=== PATIENT | female | born 1995 | race Caucasian/White ===

== ENCOUNTER → 2020-06-28 14:28 | Outpatient (CLI) | payer BC, SELFPAY ==
--- NOTE | ~2020-06-28 | US_ITS ---
EXAMINATION: US OB transvaginal DATE: 06/28/2020 14:57 INDICATION: First trimester dating TECHNIQUE: Real-time pelvic transabdominal and transvaginal ultrasound was performed. COMPARISON: None. FINDINGS: The uterus measures 9.9 x 5.8 x 5.7 cm. There is an intrauterine gestational sac. There is a 1.7 x 0.3 x 0.7 cm hypoechoic area adjacent to the gestational sac. A yolk sac is identified. Feta l heart motion is identified measuring 185 beats per minute (bpm) by M-mode Doppler. The crown rump length measures 2.5 cm , which correlates with an estimated gestational age of 9 weeks and 2 day (s) (+/-) 6 day(s). The right ovary is not visualized however no right adnexal abnormality is seen. The left ovary measur es 2.0 x 1.5 x 2.4 cm. There is normal vascular flow in the left ovary. There is no free fluid in the pelvis. IMPRESSION: 1. Live intrauterine with an estimated gestational age of 9 weeks and 2 day(s) (+/-) 6 day( s) and an estimated delivery date of 01/29/2021. 2. Small subchorionic hematoma. Reviewed, dictated and finalized at location A. IMPRESSION: 1. Live intrauterine with an estimated gestational age of 9 weeks and 2 day(s) (+/-) 6 day(s) and an estimated delivery date of 01/29/2021. 2. Small subchorionic hematoma.
== END ==
PROVIDERS: Visit Provider Nurse Practitioner
DX: Z36.87 Encounter for antenatal screening for uncertain dates (principal); Z3A.09 9 weeks gestation of pregnancy; O36.8911 Maternal care for other specified fetal problems, first trimester, fetus 1
CPT/HCPCS: 76817

== ENCOUNTER → 2020-07-13 11:29 | Outpatient (CLI) | payer BC, SELFPAY ==
--- NOTE | ~2020-07-13 | US_ITS ---
EXAMINATION: US OB transvaginal DATE: 07/13/2020 11:50 INDICATION: Subchorionic hematoma follow-up. TECHNIQUE: Real-time transvaginal pelvic ultrasound was performed. COMPARISON: Ultrasound 06/28/2020 FINDINGS: The uterus measures 9.2 x 6.9 x 7.3 cm. There is an intrauterine gestational sac. The crown rum p length measures 4.6 cm, which correlates with an estimated gestational age of 11 weeks and 3 day(s) (+/-) 1 week(s) and 0 day(s). heart motion is identified measuring 167 beats per minute (bpm) by M-mode Doppler. The right ovary is not visualized. The left ovary is not visualized. There is no f ree fluid in the pelvis. IMPRESSION: 1. Single living intrauterine gestation with estimated date of delivery of 01/29/2021 based on the ult rasound from 06/28/2020. 2. No subchorionic hematoma. Reviewed, dictated and finalized at location A. IMPRESSION: 1. Single living intrauterine gestation with estimated date of delivery of 01/29 based on the ultrasound from 06/28/2020. 2. No subchorionic hematoma.
== END ==
PROVIDERS: Visit Provider Obstetrics & Gynecology Gynecology
DX: O36.8910 Maternal care for other specified fetal problems, first trimester, not applicable or unspecified (principal)
CPT/HCPCS: 76817

== ENCOUNTER → 2020-09-07 08:15 | Outpatient (CLI) | payer BC, SELFPAY ==
--- NOTE | ~2020-09-07 | US_ITS ---
EXAMINATION: US OB >= 14 weeks Fetus DATE: 09/07/2020 09:20 INDICATION: Second trimester anatomic survey TECHNIQUE: Real-time ultrasound of the pelvis was performed. COMPARISON: None. FINDINGS: There is a single living fetus in breech presentation. The placenta is posterior and 5.7 cm from the internal cervical os. heart rate is 153 beats per minute (bpm). cardiac activity and fet al movement are noted. The amniotic fluid index is subjectively normal. The following anatomy was identified as normal: 4 chamber heart 3 vessel cord cord insertion kidneys urinary bladder stomach spine diaphragm ventricles cisterna magna cerebellum The following biometric data were obtained: Biparietal diameter (BPD): 4.3 cm; head circumference (HC): 16.7 cm; abdominal circumference (AC): 14 .7 cm; femur length (FL): 2.8 cm. These measurements are concordant. Estimated weight is 292 g +/- 43 g, which correlates with the 46th percentile when 01/29/2021 is used as estimated date of delivery. As single measurements, these parameters are each equal to the following estimated gestational ages w ith ranges of +/- 2 standard deviations: BPD: 19 weeks 1 days ( 17 weeks 3 days - 20 weeks 6 days). HC: 19 weeks 3 days ( 17 weeks 6 days - 20 weeks 6 days). AC: 20 weeks 0 days ( 18 weeks 0 days - 22 weeks 1 days). FL: 18 weeks 6 days ( 17 weeks 0 days - 20 weeks 4 days). estimated gestational age based solely on measurements from this exam is 19 weeks 3 days +/- 1 weeks 2 days. IMPRESSION: 1. Single living fetus in breech presentation. 2. Estimated weight is 292 g +/- 43 g, which correlates with the 46th percentile when 01/29/2021 is used as estimated date of delivery. Reviewed, dictated and finalized at location A. LE IAM CONSULTANT IMPRESSION: 1. Single living fetus in breech presentation. 2. Estimated weight is 292 g +/- 43 g, which correlates with the 46th per centile when 01/29/2021 is used as estimated date of delivery.
== END ==
PROVIDERS: Visit Provider Nurse Practitioner
DX: Z34.92 Encounter for supervision of normal pregnancy, unspecified, second trimester (principal); Z3A.19 19 weeks gestation of pregnancy
CPT/HCPCS: 76805

== ENCOUNTER 2020-12-30 16:34 | Observation (INO) | payer BC, SELFPAY ==
[2020-12-30] VITALS (15 sets, daily range): BP systolic 141–171; BP diastolic 86–103; PULSE 94–126; RESP 18–20; TEMP 36.4–37.2; BMI 36.6
[2020-12-30 17:17] LABS: Basophils Percent Auto 0.2 % (0.2-1.2); Eosinophils Absolute Auto 0.1 K/mm3 (0-0.3); Hematocrit 33.5 % (37.0-47.0); Hemoglobin 11.4 g/dL (12.0-15.0); Immature Granulocyte Absolute 0.04 K/mm3 (0.00-0.031); Immature Granulocyte Percent A 0.5 % (0-0.5); Lymphocytes Absolute Auto 2.04 K/mm3 (0.9-3.2); Lymphocytes Percent Auto 23.6 % (18.3-44.2); Mean Corpuscular Hemoglobin 29.8 pg (26-34); Mean Corpuscular Volume 87.5 fl (80-100); Mean Platelet Volume 9.7 fl (7.4-10.4); Monocytes Absolute Auto 0.7 K/mm3 (0.1-0.6); Monocytes Percent Auto 7.9 % (2.6-8.5); Neutrophils Absolute Auto 5.8 K/mm3 (1.3-6.7); Neutrophils Percent Auto 66.8 % (45.5-73.1); Platelet Count Result 236 k/mm3 (150-375); Red Blood Count 3.83 M/mm3 (4.2-5.4); Red Cell Distribution Width 11.9 % (11.5-14.5); White Blood Count 8.7 K/mm3 (4.5-10.0)
[2020-12-30 17:32] LABS: Alanine Aminotransferase 11 U/L (4-35); Albumin Level 3.4 g/dL (3.5-5.1); Alkaline Phosphatase 174 U/L (38-126); Anion Gap 6 mmol/L (8-16); Aspartate Amino Transferase 19 U/L (14-36); Bilirubin,Total 0.2 mg/dL (0.2-1.3); Blood Urea Nitrogen 8 mg/dL (7-17); Calcium 8.7 mg/dL (8.4-10.2); Carbon Dioxide 22 mmol/L (22-30); Chloride 107 mmol/L (98-107); Estimated Glomerular Filt Rate > 60; Glucose 107 mg/dL (65-105); Potassium 3.9 mmol/L (3.4-5.0); Sodium 135 mmol/L (137-145); Uric Acid 4.7 mg/dL (2.5-7.5)
[2020-12-30 17:44] LABS: Creatinine Urine 156.8 mg/dL; Total Protein Urine Random 31 mg/dL
[2020-12-30 17:55] LABS: Add Urine Microscopic? YES; Appearance Urine Cloudy (Clear); Bacteria Urine 3+ /hpf; Bilirubin Urine Negative (Negative); Blood Urine Negative (Negative); Color Urine Yellow (Yellow); Glucose Urine UA Negative (Negative); Ketones Urine Trace mg/dL (Negative); Leukocyte Esterase Ur 3+ LEU/UL (NEGATIVE); Mucus Urine Few /lpf; Nitrate Urine Negative (Negative); Protein Urine 2+ mg/dL (Negative); Specific Grav Ur 1.024 (1.001-1.035); Squamous Epithelial Cell Urine Many /hpf (Few); Transitional Epi Cells Urine Rare /hpf (None Seen); Urobilinogen Urine Negative mg/dL (<2.0); WBC Urine 16-20 /hpf (0-3)
[2020-12-30] MEDS: NIFEdipine 30 MG TAB.ER.24 PO (18:26)
--- NOTE | 2020-12-30 18:30 | OBADM ---
This patient, Gris Romeo, admitted to the OB room OB Post 113 for observation. Patient/family oriented to hospital policies and general routines including ID bracelet, bed and alarms, visiting hours, pain management, procedures, bathroom and other care routines, personal items, smoking policy, room service/diet, and visiting hours. Patient/Family are encouraged to report perceived risks to care and to ask questions if they do not understand what they are told or what they should do.
[2020-12-30] MEDS: MULTIVIT/MIN/PREN/FOL AC/IRON TABLET 1 TAB PO (20:32)
[2020-12-30] MEDS: ASPIRIN 81 MG CHEWABLE TABLET PO (20:32)
[2020-12-31] VITALS (17 sets, daily range): BP systolic 117–162; BP diastolic 65–101; PULSE 80–112; RESP 18; TEMP 36.3–36.9
--- NOTE | 2020-12-31 07:43 | WPDOBADMIT ---
Obstetrics - Admit Note Admission Note: record reviewed. No pertinent additions to the history and/or any subsequent changes in the physical findings that are not consistent with the expected course of the were found. Additions to the history and/or subsequent changes in the physical findings follow. Here from office with elevated BP. No PIH Sx. Good FM. BP's on admit 150-170/90-103 since Procardia 140-150/80-90's (x 1 101) abdomen soft, nt labs ok 24 hour urine in progress [id number] 24 hour urine monitor BP if >100 again this am will change to Procardia XL 30 BID
--- NOTE | 2020-12-31 16:50 | PC.NURSE ---
called Dr. Barakat updated BP and reported completed 24 urine. discharge order received with procardia XL Rx. follow up in office on Wednesday for NST.
[2020-12-31 17:22] LABS: Collection Time Urine 24 HOURS
[2020-12-31 17:25] LABS: Patient Weight 233 Lbs; Total Volume 24 Hour Urine 1300 ml
[2020-12-31 17:40] LABS: Creatinine Clearance Urine 155.4 ml/min (75-125); Creatinine Urine 128.4 mg/dL; Total Protein Urine 24 Hr 299 MG/DAY (28-141); Total Protein Urine Random 23 mg/dL
== END 2020-12-31 17:25 | disposition home or self-care (01) ==
PROVIDERS: Admitting Provider Obstetrics & Gynecology Gynecology; PCP Family Medicine Sports Medicine; Visit Provider Obstetrics & Gynecology Gynecology
DX: O16.9 Unspecified maternal hypertension, unspecified trimester (principal); Z3A.00 Weeks of gestation of pregnancy not specified
CPT/HCPCS: 36415; 59025; 80053; 81001; 81050; 82570; 82575; 84156; 84550; 85025; 87086; 87088; 99199; A9270; G0378

== ENCOUNTER 2021-01-02 09:35 | Outpatient (CLI) | payer BC, SELFPAY ==
--- NOTE | ~2021-01-02 | US_ITS ---
EXAMINATION: 1. US OB limited 2. US umbilical doppler DATE: 01/02/2021 10:43 INDICATION: Preeclampsia. Third trimester. TECHNIQUE: Real-time ultrasound of the pelvis was performed. COMPARISON: Ultrasound 09/07/2020 FINDINGS: There is a single fetus in vertex presentation. The placenta is left fundal. heart rate is 122 beats per minute (bpm). The amniotic fluid index is 16.5 cm, which is normal. Umbilical artery pulsed Doppler demonstrates a peak systolic to end-diastolic velocity ratio (S/D rat io) of 1.8 (5th percentile = 1.98, 95th percentile = 3.29). IMPRESSION: 1. Single living fetus in vertex presentation. 2. Low umbilical artery S/D ratio. Reviewed, dictated and finalized at location A. ING ASSISTANT PROPERTY MANAGER IMPRESSION: 1. Single living fetus in vertex presentation. 2. Low umbilical artery S/D ratio.
== END 2021-01-02 09:36 | disposition home or self-care (01) ==
PROVIDERS: PCP Family Medicine Sports Medicine; Visit Provider Obstetrics & Gynecology Gynecology
DX: O14.03 Mild to moderate pre-eclampsia, third trimester (principal); Z3A.00 Weeks of gestation of pregnancy not specified
CPT/HCPCS: 76815; 76820

== ENCOUNTER 2021-01-09 04:52 | Inpatient (IN) | payer BC, SELFPAY ==
[2021-01-09] VITALS (248 sets, daily range): BP systolic 94–157; BP diastolic 45–110; PULSE 85–158; TEMP 36.8–37.8; O2SAT 80–100; BMI 36.2
--- NOTE | 2021-01-09 05:13 | WPDANESEPP ---
Anes - Eval Pre Procedure Procedure: labor epidural Date/Time: 01/09/21 05:13 Surgeon: eduardo Preop Diagnosis: pain during labor Pre Op Diagnosis: Induction of Labor Patient Data Age: 25 Gender: F Height: Weight: Allergies Allergy/AdvReac Type Severity Reaction Status Date / Time Penicillins Allergy Mild Verified 12/15/10 11:01 Sulfa (Sulfonamide Allergy Mild Verified 12/15/10 11:01 Antibiotics) Home Medications Medication Instructions Recorded Confirmed Type PNV cmb#95-ferrous fumarate-FA 1 tablet PO HS 12/30/20 12/30/20 History [] aspirin 81 mg PO HS 12/30/20 12/30/20 History nifedipine [Procardia XL] 30 mg PO QAM #30 tablet 12/31/20 Rx Patient hx anesthesia problems: none Family hx anesthesia problems: none PMFSH Past Medical History Medical History (Updated 01/09/21 @ 05:14 by Vickie Sosa CRNA) Anemia IUP (intrauterine ), incidental Family History Family History (Updated 12/30/20 @ 14:39 by Nilay Melton RN) Mother Hypertension Social History Social History Substance use: never Gender identity (if verbalized by the patient): Female Spiritual care concerns: No Exam Day of Procedure 01/09/21 05:13
--- NOTE | 2021-01-09 05:16 | LDADM ---
This patient, Gris Romeo, was admitted to Labor/Delivery/Recovery 102 on 01/09/21 at 04:52. Plans for labor, pain management and were discussed with patient. Patient/family oriented to hospital policies and general routines including ID bracelet, bed and alarms, visiting hours, pain management, procedures, bathroom and other care routines, personal items, smoking policy, room service/diet and guest tray routines, infant security routines, and visiting hours. Patient/Family are encouraged to report perceived risks to care and to ask questions if they do not understand what they are told or what they should do. See OBIX for further documentation.
[2021-01-09] MEDS: LACTATED RINGERS 1,000 ML 125 ML IV CONT ×5 (05:31→19:07)
[2021-01-09] MEDS: OXYTOCIN 30 UNITS/NS 500 ML 30 UNITS/500 ML BAG 6 UNITS IV CONT (05:32)
[2021-01-09 05:53] LABS: Alanine Aminotransferase 13 U/L (4-35); Albumin Level 3.6 g/dL (3.5-5.1); Alkaline Phosphatase 192 U/L (38-126); Anion Gap 7 mmol/L (8-16); Aspartate Amino Transferase 25 U/L (14-36); Basophils Percent Auto 0.2 % (0.2-1.2); Bilirubin,Total 0.2 mg/dL (0.2-1.3); Blood Urea Nitrogen 8 mg/dL (7-17); Calcium 9.2 mg/dL (8.4-10.2); Carbon Dioxide 21 mmol/L (22-30); Chloride 106 mmol/L (98-107); Eosinophils Absolute Auto 0.1 K/mm3 (0-0.3); Eosinophils Percent Auto 0.9 % (0-4.4); Estimated CRCL calculation 177 ml/min; Estimated Glomerular Filt Rate > 60; Glucose 108 mg/dL (65-105); Hematocrit 35.5 % (37.0-47.0); Hemoglobin 12.2 g/dL (12.0-15.0); Immature Granulocyte Absolute 0.04 K/mm3 (0.00-0.031); Immature Granulocyte Percent A 0.4 % (0-0.5); Lymphocytes Absolute Auto 2.16 K/mm3 (0.9-3.2); Lymphocytes Percent Auto 22.5 % (18.3-44.2); Mean Corpuscular HGB Conc 34.4 g/dl (32-36); Mean Corpuscular Hemoglobin 29.2 pg (26-34); Mean Corpuscular Volume 84.9 fl (80-100); Mean Platelet Volume 10.2 fl (7.4-10.4); Monocytes Absolute Auto 0.8 K/mm3 (0.1-0.6); Monocytes Percent Auto 8.5 % (2.6-8.5); Neutrophils Absolute Auto 6.5 K/mm3 (1.3-6.7); Neutrophils Percent Auto 67.5 % (45.5-73.1); Platelet Count Result 301 k/mm3 (150-375); Potassium 4.3 mmol/L (3.4-5.0); Red Blood Count 4.18 M/mm3 (4.2-5.4); Red Cell Distribution Width 11.9 % (11.5-14.5); Sodium 134 mmol/L (137-145); White Blood Count 9.6 K/mm3 (4.5-10.0)
[2021-01-09 06:09] LABS: Uric Acid 5.1 mg/dL (2.5-7.5)
[2021-01-09] MEDS: NIFEdipine 30 MG TAB.ER.24 PO (06:09)
--- NOTE | 2021-01-09 07:51 | WPDOBADMIT ---
Obstetrics - Admit Note Admission Note: record reviewed. No pertinent additions to the history and/or any subsequent changes in the physical findings that are not consistent with the expected course of the were found. Additions to the history and/or subsequent changes in the physical findings follow. Here for MIL for preeclampsia. FHTs reactive. Cervix 2-3/80/-2 AROM with clear fluid. Procardia xl 30 mg extra dose this am for elevated BP's. No PIH sx.
[2021-01-09 07:54] LABS: Rapid Plasma Reagin Non-Reactive (NonReactive)
[2021-01-10] VITALS (128 sets, daily range): BP systolic 107–153; BP diastolic 58–97; PULSE 85–145; RESP 14–24; TEMP 36.7–37.9; O2SAT 92–100
[2021-01-10] MEDS: GENTAMICIN SULFATE INJ 395 MG in DEXTROSE 5% 100 ML 109.88 MG IVPB (01:54)
[2021-01-10] MEDS: CLINDAMYCIN 900 MG/D5W 50 ML 900 MG/50 ML PIGGYBACK 50 MG IVPB (02:50)
--- NOTE | 2021-01-10 04:21 | WPDHPUPDATE1 ---
History and Physical Update Update Date/Time: 01/10/21 04:21 History and Physical has been reviewed, including an updated exam of the patient. There are NO changes in the patient's condition. Risks, benefits, and alternatives have been discussed and questions answered. Patient agrees to proceed with procedure.
--- NOTE | 2021-01-10 04:21 | PM.IMHP ---
H&P: HPI History of Present Illness Date/Time: 01/10/21 04:21 Chief Complaint: failure to descend Narrative: 25 yo G1 at 37 wks here for MIL for preeclampsia. Patient with good progress until a rim then slow to complete. Pushed for about 3 hours with good descent but not under the pubic bone. Rested for 30 min and pushed another hour with no further descent. Recommend to proceed with csection. Due to another csection in progress, waited until staff and room available since tracing reactive and patient stable. Questions answered. Review of Systems Review of Systems: Narrative: not repeated day of surgery; patient states no changes in status PMFSH Past Medical History Medical History (Updated 01/10/21 @ 04:28 by Shasha Barakat MD) Anemia Surgical History Surgical History (Updated 01/10/21 @ 04:28 by Shasha Barakat MD) H/O elbow surgery Family History Family History (Updated 12/30/20 @ 14:39 by Nilay Melton RN) Mother Hypertension Social History Social History Smoking status: Never smoker Substance use: never Gender identity (if verbalized by the patient): Female Spiritual care concerns: No Meds Home Medications and Allergies Home Medications Medication Instructions Recorded Confirmed Type PNV cmb#95-ferrous fumarate-FA 1 tablet PO HS 12/30/20 12/30/20 History [] aspirin 81 mg PO HS 12/30/20 12/30/20 History nifedipine [Procardia XL] 30 mg PO QAM #30 tablet 12/31/20 Rx Allergies Allergy/AdvReac Type Severity Reaction Status Date / Time Penicillins Allergy Mild Verified 12/15/10 11:01 Sulfa (Sulfonamide Allergy Mild Verified 12/15/10 11:01 Antibiotics) Vital Signs Vital Signs - 24 hr 01/09/21 05:10 01/09/21 05:15 01/09/21 05:27 Temperature 99.1 F Pulse Rate 134 H 128 H Respiratory Rate Blood Pressure 149/107 H 149/106 H Pulse Oximetry 01/09/21 05:30 01/09/21 05:45 01/09/21 06:01 Temperature Pulse Rate 126 H 120 H 115 H Respiratory Rate Blood Pressure 152/99 H 156/99 H 142/97 H Pulse Oximetry 01/09/21 06:16 01/09/21 06:30 01/09/21 07:01 Temperature Pulse Rate 107 H 105 H 103 H Respiratory Rate Blood Pressure 138/83 144/95 H 149/94 H Pulse Oximetry 01/09/21 07:31 01/09/21 08:00 01/09/21 08:21 Temperature 99.6 F Pulse Rate 104 H 103 H Respiratory Rate Blood Pressure 142/92 H 144/90 H Pulse Oximetry 01/09/21 08:30 01/09/21 09:09 01/09/21 09:31 Temperature Pulse Rate 100 104 H 109 H Respiratory Rate Blood Pressure 148/104 H 144/90 H 137/80 Pulse Oximetry 01/09/21 10:00 01/09/21 10:31 01/09/21 10:45 Temperature Pulse Rate 114 H 105 H 113 H Respiratory Rate Blood Pressure 142/94 H 145/93 H 151/96 H Pulse Oximetry 01/09/21 10:46 01/09/21 10:48 01/09/21 10:51 Temperature Pulse Rate 103 H 116 H 104 H Respiratory Rate Blood Pressure 147/80 H 148/110 H 152/79 H Pulse Oximetry 99 98 01/09/21 10:53 01/09/21 10:56 01/09/21 10:58 Temperature Pulse Rate 104 H 102 H 104 H Respiratory Rate Blood Pressure 150/86 H 154/92 H 147/76 H Pulse Oximetry 99 01/09/21 11:00 01/09/21 11:01 01/09/21 11:03 Temperature 98.6 F Pulse Rate 105 H 115 H Respiratory Rate Blood Pressure 148/76 H 140/81 Pulse Oximetry 99 01/09/21 11:05 01/09/21 11:06 01/09/21 11:08 Temperature Pulse Rate 102 H 107 H Respiratory Rate Blood Pressure 141/73 H 144/73 H Pulse Oximetry 99 01/09/21 11:11 01/09/21 11:13 01/09/21 11:16 Temperature Pulse Rate 105 H 105 H 108 H Respiratory Rate Blood Pressure 147/73 H 146/73 H 144/77 H Pulse Oximetry 98 98 01/09/21 11:18 01/09/21 11:21 01/09/21 11:23 Temperature Pulse Rate 104 H 102 H 104 H Respiratory Rate Blood Pressure 141/72 H 135/76 138/76 Pulse Oximetry 99 01/09/21 11:26 01/09/21 11:28 01/09/21 11:31 Temperature Pulse Rate 104 H 108 H 106 H Respi
--- NOTE | 2021-01-10 05:27 | P.OP_ITS ---
Procedure Note - Detailed Date of procedure: 01/10/21 Pre-op diagnosis: Induction of Labor IUP 37 wks preeclampsia failure to descend chorioamnionitis Post-op diagnosis: same Procedure performed: primary LTCS Description of procedure: The patient was taken to the operating room and placed in the dorsal supine position with a leftward tilt under epidural anesthesia. She was prepped and draped in the usual sterile fashion. Once anesthesia was deemed adequate, a Pfannenstiel skin incision was made with a scalpel and carried down to the underlying fascia. Fascial incision is extended laterally using Boyd scissors. Bleeding vessels in the subcutaneous tissue are cauterized for hemostasis. The Ochsner was used to tent the fascia which was then dissected off using sharp and blunt dissection. The rectus muscles are in the midline the peritoneum is entered using a Peon. The peritoneal incision is extended with blunt traction. The bladder blade is placed the vesicouterine peritoneum is grasped with a Peon and entered with Metzenbaum is a and extended laterally. Bladder flap was created digitally. The bladder blade is replaced. The lower uterine segment is incised with a scalpel in a transv erse fashion. Incision is extended laterally using blunt traction. At the level of the incision the neck is noted. The was brought up into the incision from deep in the pelvis. The infant was fully delivered with public relations assistant applying fundal pressure. The cord is clamped and cut and the infant handed to the waiting nursery nurse. The placenta is removed used manual traction. The uterus is cleared of all clots and debris and exteriorized. The uterine its incision extended bilaterally to the vagina. Allis clamps are used to grasp the incision in the angles and midline. 0 Monocryl is used to close the uterine incision in a running locked fashion. Same suture was used to imbricate. One additional rpbffa-[id number]-hepty suture was required in the right midline for hemostasis. The cul-de-sac is irrigated, the gutters are irrigated, and the uterus was returned to the abdomen. The incision was again inspected and noted to be hemostatic. The fascia was closed using 0 Vicryl in a running fashion. Subcutaneous tissues are irrigated and made hemostatic using Bovie cautery. The skin is closed using 4 0 Vicryl in a subcuticular fashion. Dermaflex was placed over the incision and the patient is taken to the recovery room in stable condition. Sponge, needle, and instrument counts are correct per the OR staff. Anesthesia: epidural Surgeon: Shasha Barakat MD Estimated blood loss (mL): 635 Drains: Yes (santoyo) Packing: No Pathology: yes (placenta) Complications: Other complications (bilateral extension to vagina) Condition: stable Disposition: PACU Findings: male infant with 7/9 scores weighing 7#6oz; nuchal cord tight x 2 and body cord x 1; normal appearing tubes, ovaries, and uterus with left tubal filmy adhesions to omentum
--- NOTE | 2021-01-10 05:34 | PM.OBDSVD ---
DS: Admitting Diagnosis Admitting Diagnosis Admitting Diagnosis: IUP 37 wks Preeclampsia DS: Discharge Diagnosis Discharge Diagnosis (1) Failure of descent in labor, delivered, current hospitalization: Code(s): O62.2 - Other uterine inertia Status: Acute (2) Preeclampsia: Code(s): O14.90 - Unspecified pre-eclampsia, unspecified trimester Status: Acute (3) 37 weeks gestation of : Code(s): Z3A.37 - 37 weeks gestation of Status: Acute OB - DS: Summary OB Procedures : NST, PIH Mgmt and Ultrasound OB Procedures Intrapartum: low cervical, transverse OB Procedures: : None Peripartum Data Infant Delivery Method: Section Procedures: Procedures Operation Date: 01/10/21 04:30 <No data on this case meets the specified criteria> complications: none Status at Discharge Functional status at discharge: independent ambulation Overall status at discharge: patient is progressing back to baseline Time Spent with Patient Time attestation: Total time spent providing and/or coordinating discharge services: DS: Data Data Completed and Pending Labs on day of discharge: Labs from last 24 hours 01/09/21 01/09/21 01/09/21 05:20 05:20 05:20 WBC RBC Hgb Hct MCV MCH MCHC RDW Plt Count MPV Immature Gran % (Auto) Neut % (Auto) Lymph % (Auto) Citrus % (Auto) Eos % (Auto) Baso % (Auto) Lymph # (Auto) Citrus # (Auto) Eos # (Auto) Baso # (Auto) Abs Immat Gran (auto) Absolute Neuts (auto) Absolute Nucleated RBC Nucleated RBC % Sodium 134 L Potassium 4.3 Chloride 106 Carbon Dioxide 21 L Anion Gap 7 L BUN 8 Creatinine 0.50 L Estim Creat Clear Calc 177 Estimated GFR > 60 Glucose 108 H Uric Acid Calcium 9.2 Total Bilirubin 0.2 AST 25 ALT 13 Alkaline Phosphatase 192 H Total Protein 7.0 Albumin 3.6 RPR Non-reactive Blood Type O Positive Antibody Screen Negative 01/09/21 01/09/21 05:20 05:20 WBC 9.6 RBC 4.18 L Hgb 12.2 Hct 35.5 L MCV 84.9 MCH 29.2 MCHC 34.4 RDW 11.9 Plt Count 301 MPV 10.2 Immature Gran % (Auto) 0.4 Neut % (Auto) 67.5 Lymph % (Auto) 22.5 Citrus % (Auto) 8.5 Eos % (Auto) 0.9 Baso % (Auto) 0.2 Lymph # (Auto) 2.16 Citrus # (Auto) 0.8 H Eos # (Auto) 0.1 Baso # (Auto) 0.0 Abs Immat Gran (auto) 0.04 H Absolute Neuts (auto) 6.5 Absolute Nucleated RBC 0.0 Nucleated RBC % 0.0 Sodium Potassium Chloride Carbon Dioxide Anion Gap BUN Creatinine Estim Creat Clear Calc Estimated GFR Glucose Uric Acid 5.1 Calcium Total Bilirubin AST ALT Alkaline Phosphatase Total Protein Albumin RPR Blood Type Antibody Screen Discharge Plan Discharge Attending physician on discharge: Shasha Barakat Discharging Clinician: Shasha Barakat Anticipated Discharge Date/Time: 01/13/21 05:35 Patient Disposition: Home, Self-Care Activity: may shower, may drive after 2 weeks and pelvic rest Diet: regular Patient Instructions: Antibiotic Form Stand Alone Forms: General Discharge Information Follow-up/Referrals: Shasha Barakat MD [Physician] - 1 Week (and 6 wk) Discharge Medications: New hydrocodone-acetaminophen 5-325 mg Tablet 1 tablet PO Q3H PRN (Reason: Moderate Pain (4-6)) Qty: 20 RF: 0 norethindrone (contraceptive) 0.35 mg tablet 0.35 mg PO DAILY Qty: 84 RF: 3 Continued PNV cmb#95-ferrous fumarate-FA [] 28 mg iron- 800 mcg Tablet 1 tablet PO HS RF: 0 Discontinued aspirin 81 mg Tablet 81 mg PO HS RF: 0 nifedipine [Procardia XL] 30 mg Tablet Extended Release 24hr 30 mg PO QAM Qty: 30 RF: 0 Date of admission: 01/09/21 04:52 Primary Care Provider: aCsh,Lauryn Lewis Admitting Provider: Yuval
[2021-01-10] MEDS: OXYTOCIN 30 UNITS/NS 500 ML 30 UNITS/500 ML BAG 125 UNITS IV CONT (07:00)
--- NOTE | 2021-01-10 08:00 | PC.NURSE ---
Patient transferred to post room #290 per stretcher from labor and delivery. Support person present. Oriented to unit, room, information board, rooming in, admission packet and security measures. Patient verbalizes understanding.
--- NOTE | 2021-01-10 11:05 | PC.NURSE ---
Mother called out for assist with feeding. Consulted with patient, reports has been sleepy and ineffective feeding for most feeds. Parents are concerned infant is sleepy and not nursing more than a few bursts of suckling Discussed and the 37 2/7 week infant, establishing may have its own unique set of circumstances due to their immaturity. Near term infants may be less alert, have less stamina and may have issues with latch, suck and swallow. With the possible inability to have a vigorous suck swallow, infants may not be adequately stimulating mother and/or able to have adequate milk transfer. Pumping should be considered for additional stimulation and to offer EBM as part of supplement if needed. Mother is attempting to left breast, left nipple is flat almost inverting Discussed and offered the nipple shield. Nipple shield provided to mother due to ineffective feeding. Instructions given on application and cleaning of shield. Discussed nipple shield precautions and possible complications. Patient able to return demonstration on proper application of shield. Discussed the need to initiate pumping if infant continues to nurse with the shield. Patient verbalizes understanding. Reviewed infant feeding cues, frequencies, duration of feedings, feeding elimination flow sheet, and signs of adequate intake. Demonstrated stimulation techniques to wake infant for feeding. Assisted with infant to breast. Reviewed positioning/alignment in cross cradle, holding breast in U hold and guided asymmetrical latch on. Infant was able to latch with shield, Infant made short eagerly burst of nursing occasional swallowing noted. Infant had long pausing needing to stimulate to wake. Reviewed signs of a correct latch, effective nursing and suck swallow ratio. Discussed infant is not effectively feeding this feeding. Infant was able to maintain latch. Suggested to stimulate infant while feeding to keep awake and nursing effectively for increased stimulation and increased intake. Instructed mother to call out for RN assistance if she is unable to latch infant for feeding or she has discomfort with nursing.
--- NOTE | 2021-01-10 11:15 | PC.NURSE ---
Feeding plan discussed of putting infant to breast each feeding for 5-10 minutes, FOB will supplement 15 mls of EBM/formula, while mother is pumping. Discussed if is effectively feeding supplementation can be decreased or discontinued, advised to have feeding observed before stopping supplement.
--- NOTE | 2021-01-10 11:30 | PC.NURSE ---
Breast pump provided due to ineffective feeding. Instructions given on breast pump care and usage, pumping schedule, nipple care, and collection and storage of breast milk. Encouraged [id number], breast massage and manual expression to stimulate supply. Assessed patient for correct flange size, placement and draw. Patient verbalizes and demonstrates understanding of instructions.
[2021-01-10] MEDS: DEXTROSE 5%/0.45% SOD CHL 1,000 ML 125 ML IV CONT (11:50)
--- NOTE | 2021-01-10 12:30 | PC.NURSE ---
Consult with pt., mother reports she just attempted to breast, FOB supplemented and she pumped without difficulties or discomfort. Mother reports infant made a few eager attempts to latch with short bursts of suckling.
[2021-01-10] MEDS: HYDROcodone/acetaminophen (*CRX) 5-325 MG TABLET 1 TAB PO (19:35)
[2021-01-10] MEDS: IBUPROFEN 600 MG TABLET PO (19:35)
[2021-01-11] MEDS: HYDROcodone/acetaminophen (*CRX) 5-325 MG TABLET 1 TAB PO ×3 (04:20→20:10)
[2021-01-11] MEDS: IBUPROFEN 600 MG TABLET PO ×3 (04:20→20:10)
[2021-01-11 05:48] LABS: Basophils Percent Auto 0.2 % (0.2-1.2); Eosinophils Absolute Auto 0.2 K/mm3 (0-0.3); Eosinophils Percent Auto 1.2 % (0-4.4); Hematocrit 27.6 % (37.0-47.0); Immature Granulocyte Absolute 0.08 K/mm3 (0.00-0.031); Immature Granulocyte Percent A 0.6 % (0-0.5); Lymphocytes Absolute Auto 2.21 K/mm3 (0.9-3.2); Lymphocytes Percent Auto 17.7 % (18.3-44.2); Mean Corpuscular HGB Conc 32.6 g/dl (32-36); Mean Corpuscular Hemoglobin 28.7 pg (26-34); Mean Corpuscular Volume 87.9 fl (80-100); Mean Platelet Volume 10.3 fl (7.4-10.4); Monocytes Percent Auto 7.6 % (2.6-8.5); Neutrophils Absolute Auto 9.1 K/mm3 (1.3-6.7); Neutrophils Percent Auto 72.7 % (45.5-73.1); Platelet Count Result 191 k/mm3 (150-375); Red Blood Count 3.14 M/mm3 (4.2-5.4); Red Cell Distribution Width 12.3 % (11.5-14.5); White Blood Count 12.5 K/mm3 (4.5-10.0)
[2021-01-11 09:00] VITALS: PULSE 105; RESP 16; O2SAT 98
--- NOTE | 2021-01-11 09:01 | WPDANLDPN2 ---
Anes-Prog Note L&D Date/Time: 01/11/21 09:01 Comfortable throughout: section Neuraxial method: spinal Epidural/Spinal procedure site: clean & non-tender Neuro status: Neuro function grossly intact. Cardiovascular status: normal Respiratory status: normal Airway patency: baseline Mental status: baseline Post-Op hydration status: normal Vital Signs: Last Vital Signs Temp 36.7 C 01/10/21 23:50 Pulse 105 H 01/10/21 23:50 Resp 16 01/10/21 23:50 BP 119/68 01/10/21 23:50 Pulse Ox 98 01/10/21 15:35 Pain score (VAS): 1 I/O: Intake & Output 01/10/21 01/11/21 01/11/21 23:59 07:59 15:59 Intake Total 1000 550 Output Total 600 Balance 1000 -50 Post-procedural complaints: pruritis mild, no treatment Patient feedback: Patient satisfied with anesthetic care.
--- NOTE | 2021-01-11 09:01 | WPDANLDNPN2 ---
Anes-Prog Note L&D-Neuraxial Date/Time: 01/11/21 09:01 Neuraxial medications: intrathecal PF morphine Opiod-related complaints: pruritis mild, no treatment Patient feedback: Patient satisfied with post-operative pain management.
[2021-01-11 12:00] VITALS: BP 136/77; PULSE 80; RESP 16; TEMP 36.6; O2SAT 97
[2021-01-11] MEDS: SIMETHICONE 80 MG TAB.CHEW PO (14:17)
[2021-01-11 17:30] VITALS: BP 142/88; PULSE 92; RESP 16; TEMP 36.7; O2SAT 99
[2021-01-11 19:30] VITALS: BP 126/85; PULSE 100; RESP 16; TEMP 36.7
[2021-01-11] MEDS: POLYSACCHARIDE IRON COMPLEX 150 MG CAPSULE PO (20:10)
[2021-01-11] MEDS: DOCUSATE SODIUM 100 MG CAPSULE PO (20:10)
[2021-01-12] MEDS: HYDROcodone/acetaminophen (*CRX) 5-325 MG TABLET 1 TAB PO ×3 (06:01→18:41)
[2021-01-12] MEDS: IBUPROFEN 600 MG TABLET PO ×3 (06:01→18:41)
[2021-01-12] MEDS: MULTIVIT/MIN/PREN/FOL AC/IRON TABLET 1 TAB PO (09:37)
[2021-01-12] MEDS: SIMETHICONE 80 MG TAB.CHEW PO ×3 (09:37→18:40)
[2021-01-12] MEDS: POLYSACCHARIDE IRON COMPLEX 150 MG CAPSULE PO ×2 (09:37→18:40)
[2021-01-12] MEDS: DOCUSATE SODIUM 100 MG CAPSULE PO ×2 (09:37→18:40)
[2021-01-12 11:10] VITALS: BP 139/80; PULSE 89; RESP 16; RESP 18; TEMP 36.9; O2SAT 97
--- NOTE | 2021-01-12 11:34 | PM.OBPNVD ---
OB - PN: Subj Subjective Date/time seen: 01/12/21 11:34 Doing okay patient sleeping soundly upon entering. OB - PN: Obj Data Labs CBC & Chem 7: 01/11/21 04:16 01/09/21 05:20 OB - PN A/P Assessment and Plan (1) Preeclampsia: Code(s): O14.90 - Unspecified pre-eclampsia, unspecified trimester Status: Acute (2) Failure of descent in labor, delivered, current hospitalization: Code(s): O62.2 - Other uterine inertia Status: Acute (3) S/P : Code(s): Z98.891 - History of uterine scar from previous surgery Status: Acute Assessment and Plan: continue with pp care. Time Spent With Patient Time: Total time spent is greater than 50% in coordination of care (as documented) at patient's floor/unit and/or counseling patient: Exam GI: Other: ff below umbilius
[2021-01-12 18:10] VITALS: BP 131/80; PULSE 90; RESP 18; TEMP 36.9; O2SAT 100
[2021-01-12] MEDS: LANOLIN (LANSINOH) 7.5 GM CREAM 1 APPLIC TOPICAL (20:19)
[2021-01-13] VITALS: BP 137/87; PULSE 91; RESP 18; TEMP 37.2; O2SAT 98
[2021-01-13 04:00] VITALS: BP 135/91; PULSE 94; RESP 20; TEMP 36.5; O2SAT 99
[2021-01-13] MEDS: IBUPROFEN 600 MG TABLET PO (04:17)
[2021-01-13] MEDS: SIMETHICONE 80 MG TAB.CHEW PO (04:17)
[2021-01-13] MEDS: HYDROcodone/acetaminophen (*CRX) 5-325 MG TABLET 1 TAB PO (04:18)
[2021-01-13] MEDS: POLYSACCHARIDE IRON COMPLEX 150 MG CAPSULE PO (08:08)
[2021-01-13] MEDS: DOCUSATE SODIUM 100 MG CAPSULE PO (08:08)
[2021-01-13] MEDS: MULTIVIT/MIN/PREN/FOL AC/IRON TABLET 1 TAB PO (08:08)
[2021-01-13 08:10] VITALS: BP 132/83; PULSE 95; RESP 16; TEMP 37.3; O2SAT 100
--- NOTE | 2021-01-13 09:06 | PM.OBPNVD ---
OB - PN: Subj Subjective Date/time seen: 01/13/21 09:06 Patient comments: no complaints and pain well controlled baby status: nursing well OB - PN: Obj Data Labs CBC & Chem 7: 01/11/21 04:16 01/09/21 05:20 OB - PN A/P Plan day: 3 Plan: routine care, discharge home and other (plans micronor) Time Spent With Patient Time: Total time spent is greater than 50% in coordination of care (as documented) at patient's floor/unit and/or counseling patient: Exam Narrative: Exam Narrative: inc c/d/i : Bimanual exam- vagina & uterus: other (Uterus firm, nt @U)
--- NOTE | 2021-01-13 09:45 | PC.NURSE ---
Consult with parents, mother reports she has pumped and bottle fed for the last day. Infant will make eager attempts to latch at times using the nipple shield. Mother is pump 30mls each session without difficulties or discomfort and has a double electric pump for home use. Mother is frustrated will eagerly bottle feed and fights when at breast. Discussed milk flow and once her milk is in infant may eagerly nurse with shield and milk flows more quickly. may be more awake to nurse and assist milk let down. Reviewed to massage and assist with let down before apply shield then latching. Reviewed if infant begins to latch, empty breast and gain weight mother can discontinue pumping Mother reports she will continue to attempt, and is content with pumping and bottle feeding. Mother is feeding as required and waking infant to feed if needed. is currently meeting outcomes for weight, output, jaundice and feeding frequencies. Mother states she feels confident to continue effective at home. Reviewed transition to breast milk, signs of adequate intake, and engorgement/relief. Instructed to call ICP if intake/output less than required. Reviewed regular medications mother is taking. Information provided per Yasmin. Reviewed community resources on the [facility] website and in the Mom/Baby guide. Information on outpatient services provided. Mother has no further questions at this time.
--- NOTE | 2021-01-13 11:15 | PC.NURSE ---
Patient viewed the discharge video Mother & Baby Care, The First Two Weeks . Patient was given the opportunity and encouraged to ask questions. Patient verbalized understanding of information shared and has been given the mother/baby guide for home reference.
[2021-01-14 09:37] VITALS: BP 133/86; PULSE 86; RESP 20; TEMP 36.6; O2SAT 100
== END 2021-01-13 12:00 | disposition home or self-care (01) | DRG 786 ==
LOC: ANHLDR 01-10 05:35 → ANHOB2 01-10 08:01
PROVIDERS: Admitting Provider Obstetrics & Gynecology Gynecology; PCP Family Medicine Sports Medicine; Visit Provider Obstetrics & Gynecology Gynecology
PROC: 10D00Z1 Extraction of Products of Conception, Low, Open Approach (ICD-10-PCS; CPT 59514; principal; 2021-01-10 04:30)
DX: O14.94 Unspecified pre-eclampsia, complicating childbirth (principal); O41.1230 Chorioamnionitis, third trimester, not applicable or unspecified; Z37.0 Single live birth; Z3A.37 37 weeks gestation of pregnancy; O62.2 Other uterine inertia; O99.02 Anemia complicating childbirth; D64.9 Anemia, unspecified; O69.1XX0 Labor and delivery complicated by cord around neck, with compression, not applicable or unspecified; O69.2XX0 Labor and delivery complicated by other cord entanglement, with compression, not applicable or unspecified
CPT/HCPCS: 36415; 80053; 84550; 85025; 86592; 86850; 86900; 86901; 88307; A9270; J0131; J1100; J1580; J1885; J2274; J2405; J2590; J2795; J7120

== ENCOUNTER → 2022-07-04 10:53 | Outpatient (CLI) | payer BC, SELFPAY ==
--- NOTE | ~2022-07-04 | US_ITS ---
EXAMINATION: US OB transvaginal DATE: 07/04/2022 12:16 INDICATION: First trimester dating TECHNIQUE: Real-time pelvic transabdominal and transvaginal ultrasound was performed. COMPARISON: None. FINDINGS: The uterus measures 8.6 x 5.6 x 5.8 cm. There is an intrauterine gestational sac. A yolk s ac is identified. cardiac motion is not yet identified. The crown rump length measures 5 mm , which correlates with an estimated gestational age of 6 weeks and 1 day(s) (+/-) 4 day(s). The right ovary is not visualized however no right adnexal abnormality is seen. The left ovary measur es 2.5 x 1.8 x 1.8 cm. There is normal vascular flow in the left ovary. There is no free fluid in the pelvis. IMPRESSION: 1. Intrauterine with an estimated gestational age of 6 weeks and 1 day(s) (+/-) 4 day(s) an d an estimated delivery date of 02/26/2023. cardiac motion not yet visualized, likely due to rasta y gestation. Reviewed, dictated and finalized at location B. IMPRESSION: 1. Intrauterine with an estimated gestational age of 6 weeks and 1 da y(s) (+/-) 4 day(s) and an estimated delivery date of 02/26/2023. cardiac m otion not yet visualized, likely due to early gestation.
== END ==
PROVIDERS: PCP Family Medicine Sports Medicine; Visit Provider Advanced Practice Midwife
DX: Z36.87 Encounter for antenatal screening for uncertain dates (principal); Z3A.01 Less than 8 weeks gestation of pregnancy
CPT/HCPCS: 76817

== ENCOUNTER → 2022-07-13 08:43 | Outpatient (CLI) | payer BC, SELFPAY ==
--- NOTE | ~2022-07-13 | US_ITS ---
US OB <=14 wk fetus w TV DATE: 07/13/2022 09:10 INDICATION: Inconclusive viability TECHNIQUE: Real-time imaging via transabdominal and transvaginal approaches COMPARISON: 07/04/2022 FINDINGS: An intrauterine gestational sac is present but the sac is irregular in shape. There is an a pproximately 6 x 11 x 15 mm anechoic area subjacent to the gestational sac, likely a subchorionic hem orrhage. Small probable pole identified, without significant change in size since 07/04/2022, wi thout cardiac motion. Findings are consistent with nonviable intrauterine gestation. No ovarian or pelvic mass lesion or abnormal free pelvic fluid collection is noted. IMPRESSION: Nonviable intrauterine gestation Reviewed, dictated and finalized at Location A. Reviewed, dictated and finalized at location B.
== END ==
PROVIDERS: PCP Obstetrics & Gynecology Gynecology; Visit Provider Obstetrics & Gynecology Gynecology
DX: O36.80X0 Pregnancy with inconclusive fetal viability, not applicable or unspecified (principal); Z3A.00 Weeks of gestation of pregnancy not specified
CPT/HCPCS: 76801; 76817

== ENCOUNTER 2022-07-15 01:03 | Day surgery (SDC) | payer BC, SELFPAY ==
[2022-07-13 12:55] VITALS: BMI 31.3
--- NOTE | 2022-07-13 13:00 | PC.NURSE ---
Report to the Outpatient Waiting Room, entrance under the green pavilion located off [facility], at time 0600 on date 07/15/22. OR Time: 0730. Time changes happen often and if your time is changed the preop area will call you the afternoon before. - You and your visitor will be asked to self-screen and do not enter if you have any COVID symptoms. - Only one visitor and NO children visitors are allowed at this time. - The patient visitor is requested to leave or wait in car when not with patient due to restrictions. - A mask is required within the hospital. Patients may have clear liquids (water, carbonated beverages, clear teas, apple juice) until 3 hours prior to surgery with a maximum of 20 ounces. - No food from midnight until time of surgery Take the following medications with a SIP of water the morning of surgery: NONE Medications to discontinue per physician: VITAMIN Date to take last dose: NO MORE UNTIL AFTER SURGERY Please no make-up, nail lithuanian, hairspray, perfume, deodorant, or body powder the day of surgery. No jewelry (including any body piercings) or valuables the day of surgery, leave them at home. Please take a shower or bath the night before, or the morning of, surgery with an antibacterial soap. Wear comfortable, loose fitting clothing. - Jewelry must be removed prior to entering the operating room. Rings and piercings that are not removed may be cut off. - The hospital will not accept responsibility for valuables. - Please leave all valuables, including medications, at home the day of surgery. If you are going home after surgery, a licensed charter driver must drive you home. - NO public transportation without another adult. - We recommend that an adult stay with you for 24 hours following discharge. - We also recommend that you do not drive, make important decision, drink alcoholic beverages, or take any drugs that were not prescribed by your health care provider for at least 24 hours after your discharge time. Follow any additional instructions given to you from your surgeon. If you or anyone in your household have experienced Covid symptoms in the past week, please notify your surgeon or the nurse liaison at the phone number below for possible testing. Telephone instructions given to PT - [facility] and asked if any additional questions and then verbalized understanding. Patient advised to call surgeon office or pre surgery nurse liaison [phone] if any additional questions.
--- NOTE | 2022-07-14 12:04 | P.PNAN_ITS ---
Anes - Initial Pre Proc Eval Procedure: Operation Date: 07/15/22 07:30 Proposed Procedures p Suction Dilatation and Curettage - Shasha Barakat MD Date/Time: 07/14/22 12:04 Surgeon: Shasha Barakat MD Pre Op Diagnosis: missed AB Patient Data Age: 26 Gender: F Height: 1.7 m Weight: 90.72 kg Allergies Allergy/AdvReac Type Severity Reaction Status Date / Time Penicillins Allergy Mild Hives Verified 07/15/22 06:38 Sulfa (Sulfonamide Allergy Mild Hives Verified 07/15/22 06:38 Antibiotics) Home Medications Medication Instructions Recorded Confirmed Type vit no.95-ferrous 1 tablet PO HS 12/30/20 07/15/22 History fumarate 28 mg-folic acid 800 mcg tablet () Patient hx anesthesia problems: none Family hx anesthesia problems: none Results Review: All pre-operative results and documents have been reviewed as part of the pre- operative evaluation. PMFSH Past Medical History Medical History (Updated 07/14/22 @ 12:05 by Jed Gaspar MD) Anemia Obesity Surgical History Surgical History (Updated 01/12/21 @ 11:35 by Rosendo Heart MD) H/O elbow surgery S/P Family History Family History (Updated 12/30/20 @ 14:39 by Nilay Melton RN) Mother Hypertension Social History Social History Smoking status: Never smoker Alcohol intake: current Drinks per week: 2 Substance use: never Substance use type: does not use Living arrangements: with family Gender identity (if verbalized by the patient): Female Spiritual care concerns: No Anes - Eval Final PreProcedure Day of Procedure 07/14/22 12:04 Patient weight: overweight Heart: regular rate and rhythm Lungs: clear to auscultation and normal air movement Airway: Mallampati scale class II Neurological: alert and oriented Last oral intake: >/= 8 hours ASA classification: II Emergent: no Anesthetic plan: proceed Anesthesia type and monitoring: general GIVS and LMA Results Review: All pre-operative results and documents have been reviewed as part of the pre- operative evaluation. Informed Consent: The patient's anesthetic plan and its attendant risks and benefits were discussed with the patient/family/POA. Questions were solicited and answers provided to the satisfaction of the patient/family/POA.
[2022-07-15 06:20] VITALS: BP 146/78; PULSE 77; RESP 16; TEMP 36.6; O2SAT 100
[2022-07-15] MEDS: ACETAMINOPHEN 500 MG TABLET 1000 MG PO (06:40)
[2022-07-15] MEDS: LACTATED RINGERS 1,000 ML 30 ML IV CONT (06:46)
--- NOTE | 2022-07-15 06:50 | SUR.PREOP ---
pt given loss support group information,does not request anyone to contact her.
--- NOTE | 2022-07-15 07:00 | WPDHPUPDATE1 ---
History and Physical Update Update Date/Time: 07/15/22 07:00 History and Physical has been reviewed, including an updated exam of the patient. There are NO changes in the patient's condition. Risks, benefits, and alternatives have been discussed and questions answered. Patient agrees to proceed with procedure.
--- NOTE | 2022-07-15 07:00 | PM.HPGS ---
History of Present Illness History of Present Illness Consent: Risks, benefits, and alternatives have been discussed and questions answered. Patient agrees to proceed with procedure. Chief complaint: missed AB Narrative: Gris Romeo is a 26 year old female with missed Ab by u/s x 2. No bleeding. Options reviewed and patient has decided to proceed with surgical manangment. Plan D&C. Risks of infection, bleeding, and perforation reviewed. Review of Systems Review of Systems: not repeated day of surgery; patient states no changes in status [facility] Past Medical History Medical History (Updated 07/15/22 @ 07:02 by Shasha Barakat MD) Anemia Obesity Surgical History Surgical History (Updated 01/12/21 @ 11:35 by Rosendo Heart MD) H/O elbow surgery S/P Family History Family History (Updated 12/30/20 @ 14:39 by Nilay Melton RN) Mother Hypertension Social History Social History Smoking status: Never smoker Alcohol intake: current Drinks per week: 2 Substance use: never Substance use type: does not use Living arrangements: with family Gender identity (if verbalized by the patient): Female Spiritual care concerns: No Meds Home Medications and Allergies Home Medications Medication Instructions Recorded Confirmed Type vit no.95-ferrous 1 tablet PO HS 12/30/20 07/15/22 History fumarate 28 mg-folic acid 800 mcg tablet () Allergies Allergy/AdvReac Type Severity Reaction Status Date / Time Penicillins Allergy Mild Hives Verified 07/15/22 06:38 Sulfa (Sulfonamide Allergy Mild Hives Verified 07/15/22 06:38 Antibiotics) Vital Signs Vital Signs - 24 hr 07/15/22 06:20 Temperature 97.9 F Pulse Rate 77 Respiratory Rate 16 Blood Pressure 146/78 H Pulse Oximetry 100 Oxygen Delivery Room Air Exam Const: General: healthy appearing and alert Orientation/consciousness: patient oriented x3 Resp: Effort & Inspection: normal respiratory effort GI: GI Palp: Yes Soft to palpation, No Tenderness to palpation present (GI) and No Palpable mass present : External Female Exam: normal external appearance Speculum Exam - Vagina: normal appearance of the vagina and normal vaginal discharge Speculum Exam - Cervix: normal appearance of the cervix Bimanual exam- vagina & uterus: uterine size normal and consistency normal Bimanual Exam- Adnexa, other: normal adnexae and No adnexal tenderness Neuro: General: patient oriented x3 Assessment and Plan Assessment and plan (1) Missed : Code(s): O02.1 - Missed Status: Acute Assessment and Plan: will proceed with D&C
[2022-07-15] MEDS: KETOROLAC 30 MG/ML VIAL (*BKC) IV PUSH (07:31)
[2022-07-15] MEDS: LIDOCAINE HCL 1% PF 30 ML VIAL INFILTRATE (07:43)
--- NOTE | 2022-07-15 07:47 | W.PM.PROC2 ---
Procedure Note - Detailed Date of Procedure 07/15/22 Pre-op Diagnosis missed AB Post-op Diagnosis Same Procedure Performed Suction D&C Surgeon Shasha Barakat MD Anesthesia MAC and Local Findings Uterus sounds to 10cm with moderate products of conception Description of Procedure The patient was taken to the operating room and placed under anesthesia in the dorsal lithotomy position. She was prepped and draped in the usual sterile fashion. [place] speculum was placed in the vagina and the cervix is grasped on the anterior lip with a tenaculum. The cervix is injected in each quadrant with 1% lidocaine. The uterus is sounded to 10cm. The cervix is serially dilated to an 8 Hegar. Using an 8 curved suction curette the uterus is cleared of products of conception. When no further products were noted in the tubing, a sharp curette is used to curette the endometrium until a good uterine cry was noted in all areas. One additional pass with the suction curette was taken. All instruments were then removed. Sponge, needle, and instrument counts are correct per the OR staff. Patient is awakened from anesthesia and taken to recovery in stable condition. Estimated Blood Loss 5 Drains No Packing No Pathology Yes (Products of conception) Complications No immediate complications Condition Stable Disposition PACU
[2022-07-15 07:50] VITALS: BP 116/75; PULSE 86; RESP 12; O2SAT 99
[2022-07-15 08:20] VITALS: BP 133/67; PULSE 77; RESP 20
[2022-07-15 08:50] VITALS: BP 124/66; PULSE 71; RESP 20
== END 2022-07-15 08:52 | disposition home or self-care (01) ==
PROVIDERS: PCP Family Medicine Sports Medicine; Visit Provider Obstetrics & Gynecology Gynecology
PROC: (CPT 59820; principal; 2022-07-15 07:30)
DX: O02.1 Missed abortion (principal); Z3A.00 Weeks of gestation of pregnancy not specified
CPT/HCPCS: 59820; 88305; A9270; J1885; J2210; J2250; J2704; J3010; J7120

== ENCOUNTER → 2022-11-21 08:03 | Outpatient (CLI) | payer BC, SELFPAY ==
--- NOTE | ~2022-11-21 | US_ITS ---
EXAMINATION: US OB <=14 wk fetus w TV DATE: 11/21/2022 08:41 INDICATION: Gestational dating. History of spontaneous . TECHNIQUE: Real-time transabdominal and transvaginal obstetric ultrasound. FINDINGS: No prior studies for comparison. The uterus measures 7.8 x 4.5 x 6.6 cm. There is an intrauterine gestational sac, with pole pita ntified. The crown rump length measures 0.39 cm, which correlates with a estimated gestational age o f 6 weeks 1 day. heart tones are identified measuring 120 BPM. There is a small subchorionic hemorrhage measuring 1.4 x 0.9 x 0.4 cm. The ovaries are within normal limits. IMPRESSION: 1. SL IUP with an EGA of 6 weeks, 1 days (EDC by current ultrasound of 07/16/2023). 2: Small subchorionic hemorrhage. Reviewed, dictated and finalized at location A. NSIC MANAGER IMPRESSION: 1. SL IUP with an EGA of 6 weeks, 1 days (EDC by current ultrasound of 3). 2: Small subchorionic hemorrhage.
== END ==
PROVIDERS: PCP Family Medicine Sports Medicine; Visit Provider Obstetrics & Gynecology Gynecology
DX: O26.21 Pregnancy care for patient with recurrent pregnancy loss, first trimester (principal); Z87.59 Personal history of other complications of pregnancy, childbirth and the puerperium; Z3A.01 Less than 8 weeks gestation of pregnancy
CPT/HCPCS: 76801; 76817

== ENCOUNTER → 2022-12-18 08:40 | Outpatient (CLI) | payer BC, SELFPAY ==
--- NOTE | ~2022-12-18 | US_ITS ---
US OB limited 12/18/2022 08:56 Indication: Follow-up subchorionic hematoma Procedure: High-resolution Limited and obstetrical ultrasound. Comparison: Ultrasound dated 11/21/2022 Findings: There is a single living intrauterine with heart rate of 170 BPM. Uterus me asures 10.9 x 6.4 x 8 cm. No evidence for subchorionic hematoma. No free fluid in the pelvis. Impression: 1: Interval resolution of subchorionic hematoma. Reviewed, dictated and finalized at location B. SMISSION LINE ENGINEER Impression: 1: Interval resolution of subchorionic hematoma.
== END ==
PROVIDERS: PCP Family Medicine Sports Medicine; Visit Provider Obstetrics & Gynecology Gynecology
DX: O36.8910 Maternal care for other specified fetal problems, first trimester, not applicable or unspecified (principal); Z3A.00 Weeks of gestation of pregnancy not specified
CPT/HCPCS: 76815

== ENCOUNTER → 2023-02-20 10:14 | Outpatient (CLI) | payer BC, SELFPAY ==
--- NOTE | ~2023-02-20 | US_ITS ---
EXAMINATION: US OB /maternal detail DATE: 02/20/2023 11:06 INDICATION: anatomic survey. TECHNIQUE: Real-time ultrasound of the pelvis was performed. COMPARISON: Ultrasound 12/18/2022, 11/21/2022 FINDINGS: There is a single living fetus in variable presentation. The placenta is anterior, 5.0 cm from the c ervix. The cervical length is 2.9 cm on transabdominal images, which is normal. heart rate is 1 59 beats per minute (bpm). The amniotic fluid volume is subjectively normal. The following biometric data were obtained: Biparietal diameter (BPD): 4.5 cm; head circumference (HC): 17.1 cm; abdominal circumference (AC): 14 .8 cm; femur length (FL): 3.2 cm. These measurements are concordant. Estimated weight is 328 g +/- 49 g, which correlates with the 91st percentile when 07/16/23 is u sed as estimated date of delivery. As single measurements, these parameters are each equal to the following estimated gestational ages: BPD: 19 weeks 4 days. HC: 19 weeks 5 days. AC: 20 weeks 1 days. FL: 20 weeks 1 days. estimated gestational age based solely on measurements from this exam is 19 weeks 6 days +/- 1 weeks 3 days. The cerebral ventricles, cerebellum, cisterna magna, nuchal fold, lip, and visualized portions of the spine are normal. The heart is normal. The diaphragm, stomach, kidneys, and bladder are normal. Ther e are two umbilical arteries to yield a 3-vessel cord. The cord insertion is normal. IMPRESSION: 1. Single living fetus in variable presentation. 2. Large for gestational age. Estimated weight is 328 g +/- 49 g, which correlates with the 91 st percentile when 07/16/23 is used as estimated date of delivery. This date was set by ultrasound on 11/21/2022. 3. Normal anatomic survey. Reviewed, dictated and finalized at location A. IMPRESSION: 1. Single living fetus in variable presentation. 2. Large for gestational age. Estimated weight is 328 g +/- 49 g, which correlates with the 91st percentile when 07/16/23 is used as estimated date of d elivery. This date was set by ultrasound on 11/21/2022. 3. Normal anatomic survey.
== END ==
PROVIDERS: PCP Advanced Practice Midwife; Visit Provider Advanced Practice Midwife
DX: Z36.9 Encounter for antenatal screening, unspecified (principal); Z3A.19 19 weeks gestation of pregnancy
CPT/HCPCS: 76805

== ENCOUNTER 2023-04-06 13:44 | Observation (INO) | payer BC, SELFPAY ==
--- NOTE | ~2023-04-06 | US_ITS ---
EXAMINATION: US renal BI DATE: 04/06/2023 15:00 INDICATION: Kidney stone. . TECHNIQUE: Multiple ultrasound grayscale images of the kidneys were obtained. COMPARISON: None. FINDINGS: The right kidney measures 13.6 x 6.6 x 6.4 cm. The left kidney measures 12.0 x 5.3 x 5.3 cm. The kidn eys demonstrate normal parenchymal echogenicity. Arterial resistive indices are increased in the righ t kidney. There is moderate right hydronephrosis. The bladder is decompressed. IMPRESSION: 1. Moderate right hydronephrosis. Reviewed, dictated and finalized at location A.
[2023-04-06 14:07] VITALS: BP 134/88; PULSE 96; TEMP 36.8
[2023-04-06 14:15] LABS: Appearance Urine Turbid (Clear); Bacteria Urine Rare /hpf; Bilirubin Urine Negative (Negative); Blood Urine 1+ (Negative); Color Urine Yellow (Yellow); Glucose Urine UA Negative (Negative); Ketones Urine Negative (Negative); Leukocyte Esterase Ur Trace LEU/UL (Negative); Nitrate Urine Negative (Negative); Non Pathogenic Casts 0-2; Protein Urine 1+ mg/dL (Negative); RBC Urine 21-50 /hpf (0-2); Squamous Epithelial Cell Urine Moderate /hpf (Few); Urobilinogen Urine 0.2 mg/dL (<2.0); WBC Urine 0-5 /hpf; pH Urine 7.5 (5.0-9.0)
[2023-04-06 14:18] LABS: Add Urine Microscopic? YES
[2023-04-06] MEDS: ACETAMINOPHEN 500 MG TABLET 1000 MG PO (14:39)
[2023-04-06 14:43] VITALS: BMI 33.3
--- NOTE | 2023-04-06 14:43 | OBADM ---
This patient, Gris Romeo, admitted to the OB room OB Post 116 for observation. Patient/family oriented to hospital policies and general routines including ID bracelet, bed and alarms, visiting hours, pain management, procedures, bathroom and other care routines, personal items, smoking policy, room service/diet, and visiting hours. Patient/Family are encouraged to report perceived risks to care and to ask questions if they do not understand what they are told or what they should do. Pt. presents with c/o back pain in R. flank that wraps around to R. side . She states it started on Wednesday, went away, then came back today with a vengance . Pt. denies ctxns, vaginal bleeding and Leaking of fluid.
[2023-04-06] MEDS: ONDANSETRON INJ 4 MG/2 ML VIAL IV PUSH (15:40)
[2023-04-06] MEDS: MEPERIDINE HCL INJ (*CRX) 50 MG/ML AMPUL 25 MG IV PUSH (15:43)
[2023-04-06] MEDS: DEXTROSE 5%/LACTATED RINGERS 1,000 ML 100 ML IV CONT (15:46)
--- NOTE | 2023-04-06 16:18 | PC.NURSE ---
1530--Upon entering room to start pt's IV, she states that she has vomited X2 since returning from u/s.
--- NOTE | 2023-04-06 16:20 | PC.NURSE ---
1615--Pt. resting comfortably on R. side.
--- NOTE | 2023-04-06 16:54 | WPDURCON ---
Assessment and Plan Assessment and plan (1) 25 weeks gestation of : Code(s): Z3A.25 - 25 weeks gestation of Status: Acute (2) Right flank pain: Code(s): R10.9 - Unspecified abdominal pain Status: Acute Assessment and Plan: Secondary to hydronephrosis, vs possible ureteral stone vs. possible UTI/pyelonephritis. (3) UTI (urinary tract infection): Code(s): N39.0 - Urinary tract infection, site not specified Status: Acute Assessment and Plan: Start Rocephin, patient has hives with PCN, safe to give during for UTI possible pyelonephritis. (4) Hydronephrosis, right: Code(s): N13.30 - Unspecified hydronephrosis Status: Acute Assessment and Plan: Unable to get a CT to rule out an obstruction d/t current . We discussed that if pain is not improved tomorrow after starting antibiotics, pushing fluids and pain medication, we could discuss a cystoscopy with right ureteral stent placement and right retrograde pyelogram. Keep NPO after midnight. We discussed the risks of anesthesia and surgery to fetus during , and that it is not an ideal solution d/t needing to keep the stent in until delivery. We would then need to get a CT scan to further evaluate before removing her stent. She understands the risks involved with a possible procedure. We will keep her overnight for observation and monitor pain, symptoms and re-evaluate tomorrow. If pain improves on antibiotics and pain medications, she could be discharged home to f/u on hydronephrosis after delivery with a repeat ASTER. Urology Consult Note HPI Date Seen: 04/06/23 Time Seen: 16:54 Requesting Physician: Shasha Barakat MD Primary Care Provider: Jaleesa Gusman CNM Consult Narrative Reason for consult: Right Flank Pain/Right Hydronephrosis Narrative: Gris Romeo is a 27 year old female who presented to the OB department today for worsening right flank pain that started on Wednesday but subsided later that evening. She states her right flank pain started again today accompanied by nausea, vomiting and urinary urgency/frequency more than usual with her current of 25 weeks gestation. She denies hematuria or dysuria. She is a patient of Dr. Barakat. Upon admission she was noted to have a UA that is suggestive of a UTI with leukocytes and RBC's present. She has an elevated WBC of 12.5, creatinine is normal at 0.50. She is afebrile but otherwise vitals are stable. She has no history of kidney stones, but did report UTI's as a child. A ASTER was done today as well which notes right moderate hydronephrosis. She did get Demerol and Tylenol upon admission which brought her pain from a 9/10 to a 6/10 and she is resting comfortably in bed at this time. Review of Systems Cardiovascular: Cardiovascular: Denies chest pain and Denies chest pain at rest Respiratory: Respiratory: Reports no additional respiratory complaints Gastrointestinal: Gastrointestinal: Reports abdominal pain, Reports nausea and Reports vomiting Genitourinary: Genitourinary: Denies hematuria, Denies dysuria, Denies pelvic pain, Reports flank pain and Reports urinary urgency PMFSH Past Medical History Medical History Anemia Obesity Surgical History Surgical History H/O elbow surgery S/P Family History Family History Mother Hypertension Social History Social History Smoking status: Never smoker Alcohol intake: current Drinks per week: 2 Substance use: never Substance use type: does not use Living arrangements: with family Gender identity (if verbalized by the patient): Female Spiritual care concerns: No Meds Home Medications and A
--- NOTE | 2023-04-06 17:10 | PC.NURSE ---
1650--Dr. Aranda at to see pt. and discuss POC with pt., orders received at this time.
[2023-04-06] MEDS: LACTATED RINGERS 1,000 ML 100 ML IV CONT (17:36)
[2023-04-06 17:40] VITALS: BP 123/78; PULSE 102; TEMP 37
--- NOTE | 2023-04-06 18:16 | PC.NURSE ---
1750--Pt. resting on R. side, States her pain is so much better and rates it 3/10 at this time. She has ordered dinner and denies any nausea at this time.
--- NOTE | 2023-04-06 19:49 | PC.NURSE ---
193 - Patient calls to nurses station and states that she passed a kidney stone, measuring 4mm and is feeling much better and would like to go home. 1943 - Dr Barakat called via food writer and informed of kidney stone passing and patient requesting to be discharged to home. orders to send stone to pathology and to contact urology to let them know we no longer need consult and that patient may discharge home. 1947 - Urology called via food writer and informed of no longer needing consult due to patient passing stone.
--- NOTE | 2023-04-06 20:30 | PC.NURSE ---
2000 - Discharge instructions given to patient and patient verbalizes understanding. Paper copy given to patient. 2010 - Patient ambulates off unit without complication, discharged to home in self care.
--- NOTE | 2023-04-09 12:44 | P.PNOB_ITS ---
OB - Triage/Final Diagnosis Visit Information Reason for evaluation: other ( kidney stone) Comments/Additional reasons for admission: I have assessed the risk for this patient, Gris Romeo, and determined that she would benefit from observation care. Evaluation Laboratory results: Laboratory Tests 04/06/23 13:57 Urine Color Yellow Urine Appearance Turbid H Urine pH 7.5 Ur Specific [place] 1.020 Urine Protein 1+ H Urine Glucose (UA) Negative Urine Ketones Negative Ur Blood (Man) 1+ H Urine Nitrate Negative Urine Bilirubin Negative Urine Urobilinogen 0.2 Leukocyte Esterase Rfl Trace H Urine RBC 21-50 H Urine WBC 0-5 Ur Squamous Epith Cells Moderate Urine Bacteria Rare Urine Casts 0-2
== END 2023-04-06 20:11 | disposition home or self-care (01) ==
PROVIDERS: Admitting Provider Obstetrics & Gynecology Gynecology; PCP Advanced Practice Midwife; Visit Provider Obstetrics & Gynecology Gynecology
DX: O26.833 Pregnancy related renal disease, third trimester (principal); N13.2 Hydronephrosis with renal and ureteral calculous obstruction; O23.42 Unspecified infection of urinary tract in pregnancy, second trimester; Z3A.25 25 weeks gestation of pregnancy; Z79.82 Long term (current) use of aspirin; Z79.899 Other long term (current) drug therapy
CPT/HCPCS: 76775; 81001; 82365; 88300; 96374; 96375; A9270; G0378; G0379; J0696; J2175; J2405; J7120; J7121

== ENCOUNTER 2023-06-23 07:02 | Outpatient (CLI) | payer BC, SELFPAY ==
[2023-06-23 08:11] LABS: Hematocrit 35.5 % (37.0-47.0); Hemoglobin 11.4 g/dL (12.0-15.0); Mean Corpuscular HGB Conc 32.1 g/dl (32-36); Mean Corpuscular Hemoglobin 28.1 pg (26-34); Mean Corpuscular Volume 87.7 fl (80-100); Mean Platelet Volume 10.5 fl (7.4-10.4); Platelet Count Result 203 k/mm3 (150-375); Red Blood Count 4.05 M/mm3 (4.2-5.4); Red Cell Distribution Width 14.6 % (11.5-14.5); White Blood Count 7.8 K/mm3 (4.5-10.0)
[2023-06-23 14:36] LABS: Rapid Plasma Reagin Non-Reactive (NonReactive)
== END 2023-06-23 07:03 | disposition home or self-care (01) ==
LOC: ANHLAB 07:04
PROVIDERS: PCP Family Medicine Sports Medicine; Visit Provider Obstetrics & Gynecology Gynecology
DX: Z34.93 Encounter for supervision of normal pregnancy, unspecified, third trimester (principal); Z3A.00 Weeks of gestation of pregnancy not specified
CPT/HCPCS: 36415; 85027; 86592; 86850; 86900; 86901

== ENCOUNTER 2023-06-24 05:23 | Inpatient (IN) | payer BC, SELFPAY ==
[2023-06-24] VITALS (53 sets, daily range): BP systolic 113–152; BP diastolic 70–95; PULSE 75–118; RESP 16–24; TEMP 36.2–37.4; O2SAT 88–100; BMI 35.2
--- NOTE | 2023-06-24 05:23 | LDADM ---
This patient, Gris Romeo, was admitted to OB 2nd Floor Room 276 on 06/24/23 at 05:23. Plans for c section, pain management and were discussed with patient. Patient/family oriented to hospital policies and general routines including ID bracelet, bed and alarms, visiting hours, pain management, procedures, bathroom and other care routines, personal items, smoking policy, room service/diet and guest tray routines, security routines, and visiting hours. Patient/Family are encouraged to report perceived risks to care and to ask questions if they do not understand what they are told or what they should do. See OBIX for further documentation.
[2023-06-24] MEDS: LACTATED RINGERS 1,000 ML 125 ML IV CONT ×2 (06:49→07:22)
--- NOTE | 2023-06-24 06:49 | WPDANESEPPF ---
Anes - Initial Pre Proc Eval Procedure: Operation Date: 06/24/23 07:30 Proposed Procedures p Repeat Section - Shasha Barakat MD Date/Time: 06/24/23 06:49 Surgeon: Shasha Barakat MD Pre Op Diagnosis: C/Section Patient Data Age: 27 Gender: F Height: 1.7 m Weight: 102 kg Last Vital Signs Temp 36.8 C 06/24/23 06:27 Pulse 116 H 06/24/23 06:46 BP 152/93 H 06/24/23 06:46 O2 Del Method Room Air 06/24/23 06:12 Allergies Allergy/AdvReac Type Severity Reaction Status Date / Time Penicillins Allergy Mild Hives Verified 06/24/23 06:26 Sulfa (Sulfonamide Allergy Mild Hives Verified 06/24/23 06:26 Antibiotics) Home Medications Medication Instructions Recorded Confirmed Type aspirin 81 mg tablet 162 mg PO DAILY 04/06/23 06/24/23 History ergocalciferol (vitamin D2) 1,250 1 unit PO WEEKLY 04/06/23 04/06/23 History mcg (50,000 unit) capsule vit no.133-ferrous 1 tablet PO DAILY 04/06/23 06/24/23 History fumarate 28 mg-folic acid 800 mcg tablet () ferrous sulfate 325 mg (65 mg 325 mg PO DAILY 06/17/23 06/17/23 History iron) tablet Patient hx anesthesia problems: none Family hx anesthesia problems: none Results Review: All pre-operative results and documents have been reviewed as part of the pre-operative evaluation. [facility] Past Medical History Medical History (Updated 06/24/23 @ 06:50 by Kip Tidwell DO) Anemia Obesity Preeclampsia Surgical History Surgical History H/O elbow surgery S/P Family History Family History Mother Hypertension Social History Social History Smoking status: Never smoker Second hand tobacco smoke exposure: No Alcohol intake: current Drinks per week: 2 Substance use: never Substance use type: does not use Lack of Transportation: No Lack of Food: Never True Current Housing: I Have Housing Concerned About Future Housing: No Difficulty Paying Gas/Electric Bills: No Difficulty Paying for Meds: No Currently Unemployed: No Education: Master's Degree or Higher Difficulty w/ Childcare or Family Care: No Living arrangements: with family Gender identity (if verbalized by the patient): Female Spiritual care concerns: No Anes - Eval Final PreProcedure Day of Procedure 06/24/23 06:49 Patient weight: obese Heart: regular rate and rhythm Lungs: clear to auscultation and normal air movement Airway: Mallampati scale class II Neurological: alert and oriented Last oral intake: >/= 8 hours ASA classification: III Emergent: no Anesthetic plan: proceed Anesthesia type and monitoring: regional spinal and standard monitoring Results Review: All pre-operative results and documents have been reviewed as part of the pre-operative evaluation. Informed Consent: The patient's anesthetic plan and its attendant risks and benefits were discussed with the patient/family/POA. Questions were solicited and answers provided to the satisfaction of the patient/family/POA.
--- NOTE | 2023-06-24 07:06 | WPDHPUPDATE1 ---
History and Physical Update Update Date/Time: 06/24/23 07:06 History and Physical has been reviewed, including an updated exam of the patient. There are NO changes in the patient's condition. Risks, benefits, and alternatives have been discussed and questions answered. Patient agrees to proceed with procedure.
--- NOTE | 2023-06-24 07:06 | PM.IMHP ---
H&P: HPI History of Present Illness Date/Time: 06/24/23 07:06 Chief Complaint: Repeat Narrative: T patient is a 27-year-old 3 para 1 aborta 1 admitted at 37 weeks for repeat section secondary to chronic hypertension with superimposed preeclampsia. Chronic hypertension was diagnosed early in the 1st trimester. Baseline 24 urine was 236mg of protein. Second trimester 24 urine was 477mg of protein. Maternal- medicine consult was obtained to verify early diagnosis of preeclampsia. Several repeat 24 urine showed increasing levels of protein each time. The most recent was 742mg of protein. It was recommended to proceed with delivery at 37 weeks given the diagnosis. Patient has been followed by Maternal- Medicine and ultrasounds have shown normal biophysical profiles, amniotic fluid, and growth. Blood pressures have been stable. labs O positive, rubella immune, RPR negative, hepatitis B surface antigen negative. Review of Systems Review of Systems: All systems reviewed & are unremarkable except as noted in HPI and below ( History of present illness) [facility] Past Medical History Medical History (Updated 06/24/23 @ 07:11 by Shasha Barakat MD) History of kidney stones Obesity Preeclampsia 2020 and current Surgical History Surgical History (Updated 06/24/23 @ 07:15 by Shasha Barakat MD) H/O elbow surgery History of D&C 2021 for spontaneous S/P low-transverse section at 37 weeks in 2020 7lb 6oz male complicated by preeclampsia Family History Family History Mother Hypertension Social History Social History Smoking status: Never smoker Second hand tobacco smoke exposure: No Alcohol intake: current Drinks per week: 2 Substance use: never Substance use type: does not use Lack of Transportation: No Lack of Food: Never True Current Housing: I Have Housing Concerned About Future Housing: No Difficulty Paying Gas/Electric Bills: No Difficulty Paying for Meds: No Currently Unemployed: No Education: Master's Degree or Higher Difficulty w/ Childcare or Family Care: No Living arrangements: with family Gender identity (if verbalized by the patient): Female Spiritual care concerns: No Meds Home Medications and Allergies Home Medications Medication Instructions Recorded Confirmed Type aspirin 81 mg tablet 162 mg PO DAILY 04/06/23 06/24/23 History ergocalciferol (vitamin D2) 1,250 1 unit PO WEEKLY 04/06/23 04/06/23 History mcg (50,000 unit) capsule vit no.133-ferrous 1 tablet PO DAILY 04/06/23 06/24/23 History fumarate 28 mg-folic acid 800 mcg tablet () ferrous sulfate 325 mg (65 mg 325 mg PO DAILY 06/17/23 06/17/23 History iron) tablet Allergies Allergy/AdvReac Type Severity Reaction Status Date / Time Penicillins Allergy Mild Hives Verified 06/24/23 06:26 Sulfa (Sulfonamide Allergy Mild Hives Verified 06/24/23 06:26 Antibiotics) Vital Signs Vital Signs - 24 hr 06/24/23 05:50 06/24/23 06:01 06/24/23 06:00 Temperature 98.2 F Pulse Rate 109 H 111 H Blood Pressure 149/95 H 141/93 H Oxygen Delivery 06/24/23 06:32 06/24/23 06:46 06/24/23 06:12 Temperature Pulse Rate 118 H 116 H Blood Pressure 140/91 H 152/93 H Oxygen Delivery Room Air 06/24/23 06:27 Temperature 98.2 F Pulse Rate Blood Pressure Oxygen Delivery Exam Const: General: healthy appearing and alert Orientation/consciousness: patient oriented x3 Resp: Effort & Inspection: normal respiratory effort GI: GI Palp: Yes Soft to palpation, No Tenderness to palpation present (GI) and Yes Other GI palpation findings present ( gravid with a fundal height of 34cm) : External Female Exam: normal external appearance Spe
[2023-06-24] MEDS: ceFAZolin 2 GM/D5W 50 ML 2 GM/50 ML BAG IVPB (07:22)
--- NOTE | 2023-06-24 08:17 | W.PM.PROC2 ---
Procedure Note - Detailed Date of Procedure 06/24/23 Pre-op Diagnosis Intrauterine at 37 weeks Chronic hypertension with superimposed preeclampsia Previous section Post-op Diagnosis Same Procedure Performed Repeat low-transverse section Surgeon Shasha Barakat MD Anesthesia Spinal Findings Female in the left occiput posterior position; nuchal cord x1; 7lb 9oz with 9 [id number] and 9 [id number] Apgars; normal-appearing tubes, ovaries, uterus; thick scar tissue in the midline between the rectus muscles; omental adhesions to the anterior abdominal wall and lower uterine segment; bladder flap densely adherent to the mid fundus Description of Procedure The patient is taken to the operating room and placed under anesthesia in the dorsal supine position with a leftward tilt. Once anesthesia is deemed adequate, a Pfannenstiel skin incision was made through her prior incision. The incision was carried down to the fascia which was nicked in the midline. The incision was extended laterally with Boyd scissors. Bleeding vessels in the subcutaneous tissue are cauterized for hemostasis. The rectus muscles are very densely adherent in the midline and are using a scalpel. The peritoneum is entered during this process. The incision was extended with blunt traction and with Bovie cautery. The bladder blade is placed. The bladder flap is adherent to the mid fundus in the midline only. Extensive vascularity is noted at this site. The vessels are grasped with a Peon and cauterized. The vesicouterine peritoneum is cauterized in the midline and the incision extended with Metzenbaum scissors. The bladder flap was created digitally. The bladder blade is replaced. The lower uterine segment was incised in a transverse fashion with the scalpel. The incision was extended with lateral traction. Membranes are ruptured and clear fluid noted. The head is directed through the incision and attempted to be delivered as the hospital administrative assistant applied fundal pressure. The infant was noted to be in occiput posterior position and the forces were directed downward instead of upward through the incision. The infant's head was rotated and a 2nd attempt is made without success. The infant's head rotated again to the occiput posterior position. The left rectus muscle some scar tissue that appeared to be holding up the head so this was cauterized approximately 2cm of the muscle. Vacuum was applied and 1 pop-off occurred. Second attempt with vacuum was successful. The infant's head was fully delivered and the infant's shoulders followed quickly. The cord was noted to be a loosely around the neck this was detangled and delayed cord clamping for [id number] was performed. The cord was then clamped and cut and the handed to the waiting nursery nurse. Minimal traction was applied to the cord for delivery and the cord avulsed immediately. Therefore the placenta was removed manually. The uterus is cleared of all clots and debris and exteriorized. The uterine incision was closed using 0 Monocryl in a running locked fashion with same suture used to imbricate. Good hemostasis is noted. The cul-de-sac is irrigated and the uterus returned to the abdomen. The gutters are irrigated. The incision was again inspected noted to be hemostatic. The fascia was closed using 0 Vicryl in a running fashion. Subcutaneous tissues were irrigated made hemostatic using Bovie cautery. Skin incision was closed using 4-0 Vicryl in a subcuticular fashion. Glue is applied. Sponge, needle, and instrument count is correct. Patient received Ancef prior to skin incision. The patient is taken to recovery in stable condition. Estimated Blood Loss 545 Drains Yes (Montes catheter) Packing No Pathology Yes (Placenta) Complications No immediate complications Condition Stable Disposition Floor
--- NOTE | 2023-06-24 08:25 | PM.OBDSVD ---
DS: Admitting Diagnosis Discharge Date 06/27/23 <Mary Kay Rodriguez MD - Last Filed: 06/27/23 09:43> Admitting Diagnosis Intrauterine at 37 weeks Chronic hypertension with superimposed preeclampsia Previous section <Shasha Barakat MD - Last Filed: 06/25/23 12:07> DS: Discharge Diagnosis Discharge Diagnosis (1) Delivery of second by section using transverse incision of lower segment of uterus: Code(s): O82 - Encounter for delivery without indication <Shasha Barakat MD - Last Filed: 06/25/23 12:07> Status: Acute <Shasha Barakat MD - Last Filed: 06/25/23 12:07> (2) Preeclampsia: Code(s): O14.90 - Unspecified pre-eclampsia, unspecified trimester <Shasha Barakat MD - Last Filed: 06/25/23 12:07> Status: Acute <Shasha Barakat MD - Last Filed: 06/25/23 12:07> (3) History of section, low transverse: Code(s): Z98.891 - History of uterine scar from previous surgery <Shasha Barakat MD - Last Filed: 06/25/23 12:07> Status: Acute <Shasha Barakat MD - Last Filed: 06/25/23 12:07> (4) 37 weeks gestation of : Code(s): Z3A.37 - 37 weeks gestation of <Shasha Barakat MD - Last Filed: 06/25/23 12:07> Status: Acute <Shasha Barakat MD - Last Filed: 06/25/23 12:07> OB - DS: Summary OB Procedures : NST, PIH Mgmt and Ultrasound <Shasha Barakat MD - Last Filed: 06/25/23 12:07> OB Procedures Intrapartum: low cervical, transverse <Shasha Barakat MD - Last Filed: 06/25/23 12:07> OB Procedures: : None <Shasha Barakat MD - Last Filed: 06/25/23 12:07> Peripartum Data Infant Delivery Method: Section <Shasha Barakat MD - Last Filed: 06/25/23 12:07> Procedures: Procedures Operation Date: 06/24/23 07:30 <No data on this case meets the specified criteria> <Shasha aBrakat MD - Last Filed: 06/25/23 12:07> complications: none <Shasha Barakat MD - Last Filed: 06/25/23 12:07> 1: Gender: Female <Mary Kay Rodriguez MD - Last Filed: 06/27/23 09:43> Disposition of : home <Mary Kay Rodriguez MD - Last Filed: 06/27/23 09:43> Status at Discharge Functional status at discharge: independent ambulation <Shasha Barakat MD - Last Filed: 06/25/23 12:07> Overall status at discharge: patient is progressing back to baseline <Shasha Barakat MD - Last Filed: 06/25/23 12:07> Time Spent with Patient Time attestation: Total time spent providing and/or coordinating discharge services: <Shasha Barakat MD - Last Filed: 06/25/23 12:07> Time spent: Less than 30 minutes <Mary Kay Rodriguez MD - Last Filed: 06/27/23 09:43> Exam Const: General: cooperative, comfortable, no acute distress and obese <Mary Kay Rodriguez MD - Last Filed: 06/27/23 09:43> Orientation/consciousness: patient oriented x3 <Mary Kay Rodriguez MD - Last Filed: 06/27/23 09:43> Resp: Effort & Inspection: normal respiratory effort <Mary Kay Rodriguez MD - Last Filed: 06/27/23 09:43> Auscultation: clear to auscultation bilaterally <Mary Kay Rodriguez MD - Last Filed: 06/27/23 09:43> Cardio: Rate: regular rate <Mary Kay Rodriguez MD - Last Filed: 06/27/23 09:43> GI: Inspection: non-distended and incision <Mary Kay Rodriguez MD - Last Filed: 06/27/23 09:43> GI Palp: No abdominal tenderness and Yes Soft to palpation <Mary Kay Rodriguez MD - Last Filed: 06/27/23 09:43> Auscultation: normal bowel sounds <Mary Kay Rodriguez MD - Last Filed: 06/27/23 09:43> : Other: fundus firm <Mary Kay Rodriguez MD - Last Filed: 06/27/23 09:43> Skin: General skin exam: normal color <Mary Kay Rodriguez MD - Last Filed: 06/27/23 09:43> Neuro: General: patient oriented x3
[2023-06-24] MEDS: KETOROLAC 30 MG/ML VIAL (*BKC) 15 MG IV PUSH (08:34)
[2023-06-24] MEDS: OXYTOCIN 30 UNITS/NS 500 ML 30 UNITS/500 ML BAG 125 UNITS IV CONT (09:38)
--- NOTE | 2023-06-24 11:20 | OBPPTRN ---
Patient transferred to post room # 276 via stretcher and transferred to bed via maxi air without difficulty.Support person present. Pt introductions made and plan of care discussed per post op c section, pain management, daily care activities and pumping and bottle feeding. PT received such instructions per one to one discussion, mom baby care guide and demonstrations this shift. PT and spouse show no barriers to learning at this time. PT verbalized understanding of such care. Oriented to unit, room, information board, rooming in, admission packet and security measures. Patient verbalizes understanding.
[2023-06-24] MEDS: DEXTROSE 5%/0.45% SOD CHL 1,000 ML 125 ML IV CONT (13:19)
[2023-06-24] MEDS: HYDROcodone/acetaminophen (*CRX) 5-325 MG TABLET 1 TAB PO (13:26)
[2023-06-24] MEDS: KETOROLAC 30 MG/ML VIAL (*BKC) IV PUSH ×2 (13:26→19:30)
[2023-06-24] MEDS: LANOLIN (LANSINOH) 7.5 GM CREAM 1 APPLIC TOPICAL (13:27)
--- NOTE | 2023-06-24 14:15 | PC.NURSE ---
[id number] Introductions were made, then consulted with patient to assess needs related to . Mother led the conversation with her?plans to feed?her infant and the?experience so far. Mother works well with her with encouragement and education. Encouraged understanding of the benefits of skin to skin (demonstrating unwrapping and placing upright on her chest), stimulating with massage touch, changing positions to encourage wakefulness, how to watch for early feeding cues, responsive feeding, feeding on demand (aiming for 8-12 times in 24 hours, about every 2-3 hours), milk production and building/maintaining a milk supply. Mother states she might want to pump. Discussed the risks of effectively and pumping. Infant is sleepy and reluctant after receiving a 30mls of bottled formula. RN brought pump into the room and Mother encouraged to call when infant is showing feeding cues, not latching or pain with latching and pumping instructions if doesn't latch. Primary RN reported that mother wants to pump and feed only and she reviewed the pumping education.
[2023-06-24] MEDS: POLYSACCHARIDE IRON COMPLEX 150 MG CAPSULE PO (16:36)
[2023-06-24] MEDS: DOCUSATE SODIUM 100 MG CAPSULE PO (16:36)
[2023-06-24] MEDS: HYDROcodone/acetaminophen (*CRX) 10-325 MG TABLET 1 TAB PO ×2 (16:36→19:30)
[2023-06-25 04:20] VITALS: BP 134/84; PULSE 101; RESP 18; TEMP 37.1; O2SAT 100
[2023-06-25] MEDS: IBUPROFEN 600 MG TABLET PO ×3 (04:23→20:28)
[2023-06-25] MEDS: HYDROcodone/acetaminophen (*CRX) 10-325 MG TABLET 1 TAB PO ×2 (04:23→09:28)
[2023-06-25] MEDS: SIMETHICONE 80 MG TAB.CHEW PO (04:23)
[2023-06-25 04:43] LABS: Basophils Percent Auto 0.5 % (0.2-1.2); Eosinophils Absolute Auto 0.2 K/mm3 (0-0.3); Eosinophils Percent Auto 2.7 % (0-4.4); Hematocrit 29.4 % (37.0-47.0); Hemoglobin 9.4 g/dL (12.0-15.0); Immature Granulocyte Absolute 0.05 K/mm3 (0.00-0.031); Immature Granulocyte Percent A 0.6 % (0-0.5); Lymphocytes Absolute Auto 1.59 K/mm3 (0.9-3.2); Lymphocytes Percent Auto 19.5 % (18.3-44.2); Mean Corpuscular Hemoglobin 28.3 pg (26-34); Mean Corpuscular Volume 88.6 fl (80-100); Mean Platelet Volume 10.3 fl (7.4-10.4); Monocytes Absolute Auto 0.7 K/mm3 (0.1-0.6); Monocytes Percent Auto 9.1 % (2.6-8.5); Neutrophils Absolute Auto 5.5 K/mm3 (1.3-6.7); Neutrophils Percent Auto 67.6 % (45.5-73.1); Platelet Count Result 141 k/mm3 (150-375); Red Blood Count 3.32 M/mm3 (4.2-5.4); Red Cell Distribution Width 14.7 % (11.5-14.5); White Blood Count 8.2 K/mm3 (4.5-10.0)
[2023-06-25 07:35] VITALS: BP 122/76; PULSE 96; RESP 16; TEMP 37.4; O2SAT 100
[2023-06-25] MEDS: MULTIVIT/MIN/PREN/FOL AC/IRON TABLET 1 TAB PO (09:29)
[2023-06-25] MEDS: POLYSACCHARIDE IRON COMPLEX 150 MG CAPSULE PO ×2 (09:29→15:53)
[2023-06-25] MEDS: DOCUSATE SODIUM 100 MG CAPSULE PO ×2 (09:29→15:53)
--- NOTE | 2023-06-25 10:04 | WPDANLDPN2 ---
Anes-Prog Note L&D Date/Time: 06/25/23 10:04 Neuro status: Neuro function grossly intact. Cardiovascular status: normal Respiratory status: normal Airway patency: baseline Mental status: baseline Post-Op hydration status: normal Vital Signs: Last Vital Signs Temp 37.4 C 06/25/23 07:35 Pulse 96 06/25/23 07:35 Resp 16 06/25/23 07:35 BP 122/76 06/25/23 07:35 Pulse Ox 100 06/25/23 07:35 O2 Del Method Room Air 06/25/23 04:20 Pain score (VAS): 0 I/O: Intake & Output 06/24/23 06/25/23 06/25/23 23:59 07:59 15:59 Intake Total 1000 1250 Output Total 150 1800 Balance 850 -550 Post-procedural complaints: none Patient feedback: Patient satisfied with anesthetic care.
--- NOTE | 2023-06-25 10:05 | WPDANLDPN2 ---
Anes-Prog Note L&D Date/Time: 06/25/23 10:05 Neuro status: Neuro function grossly intact. Cardiovascular status: normal Respiratory status: normal Airway patency: baseline Mental status: baseline Post-Op hydration status: normal Vital Signs: Last Vital Signs Temp 37.4 C 06/25/23 07:35 Pulse 96 06/25/23 07:35 Resp 16 06/25/23 07:35 BP 122/76 06/25/23 07:35 Pulse Ox 100 06/25/23 07:35 O2 Del Method Room Air 06/25/23 04:20 Pain score (VAS): 0 I/O: Intake & Output 06/24/23 06/25/23 06/25/23 23:59 07:59 15:59 Intake Total 1000 1250 Output Total 150 1800 Balance 850 -550 Post-procedural complaints: none Patient feedback: Patient satisfied with anesthetic care.
--- NOTE | 2023-06-25 12:02 | PM.OBPNVD ---
OB - PN: Subj Subjective Date/time seen: 06/25/23 12:02 Interval history: No PIH Sx Patient comments: no complaints and pain well controlled [place] baby status: doing well OB - PN: Obj Data Labs 06/25/23 04:29 Labs: Laboratory Results - last 24 hr 06/25/23 04:29 WBC 8.2 RBC 3.32 L Hgb 9.4 L Hct 29.4 L MCV 88.6 MCH 28.3 MCHC 32.0 RDW 14.7 H Plt Count 141 L MPV 10.3 Immature Gran % (Auto) 0.6 H Neut % (Auto) 67.6 Lymph % (Auto) 19.5 [place] % (Auto) 9.1 H Eos % (Auto) 2.7 Baso % (Auto) 0.5 Lymph # (Auto) 1.59 [place] # (Auto) 0.7 H Eos # (Auto) 0.2 Baso # (Auto) 0.0 Abs Immat Gran (auto) 0.05 H Absolute Neuts (auto) 5.5 Absolute Nucleated RBC 0.0 Nucleated RBC % 0.0 OB - PN A/P Assessment and Plan (1) Preeclampsia: Code(s): O14.90 - Unspecified pre-eclampsia, unspecified trimester Status: Acute Assessment and Plan: BP stable. No diuresis yet. Plan day: 1 Plan: routine care Time Spent With Patient Time: Total time spent is greater than 50% in coordination of care (as documented) at patient's floor/unit and/or counseling patient: Exam Narrative: inc c/d/i : Bimanual exam- vagina & uterus: other (Uterus firm, nt @U)
[2023-06-25] MEDS: HYDROcodone/acetaminophen (*CRX) 5-325 MG TABLET 1 TAB PO ×3 (12:15→20:28)
[2023-06-25 12:47] VITALS: BP 122/76; PULSE 102; RESP 16; TEMP 37.3; O2SAT 99
[2023-06-25 16:26] VITALS: BP 128/77; PULSE 91; RESP 20; TEMP 36.8; O2SAT 100
[2023-06-25 20:26] VITALS: BP 135/90; PULSE 103; RESP 18; TEMP 36.6; O2SAT 99
[2023-06-26 01:12] VITALS: BP 130/82; PULSE 110
[2023-06-26 05:50] VITALS: BP 129/85; PULSE 97
[2023-06-26] MEDS: HYDROcodone/acetaminophen (*CRX) 5-325 MG TABLET 1 TAB PO ×2 (05:55→22:10)
[2023-06-26] MEDS: IBUPROFEN 600 MG TABLET PO ×3 (05:55→22:10)
[2023-06-26 08:00] VITALS: BP 140/85; PULSE 102; RESP 20; TEMP 36.7; O2SAT 98
[2023-06-26] MEDS: DOCUSATE SODIUM 100 MG CAPSULE PO ×2 (08:13→17:04)
[2023-06-26] MEDS: POLYSACCHARIDE IRON COMPLEX 150 MG CAPSULE PO ×2 (08:13→17:04)
[2023-06-26] MEDS: MULTIVIT/MIN/PREN/FOL AC/IRON TABLET 1 TAB PO (08:13)
--- NOTE | 2023-06-26 09:00 | P.PNOB_ITS ---
OB - PN: Subj Subjective Date/time seen: 06/26/23 09:00 Interval history: No PIH Sx Narrative: POD#2 Gris reports doing well today. 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 Her pain is not fully controlled this morning on the 5mg norco. She is tolerating regular diet, voiding, passing gas, and ambulating without issues. She denies any issues with her incision. She is breast feeding. OB - PN: Obj Data Labs 06/25/23 04:29 OB - PN A/P Assessment and Plan (1) Delivery of second by section using transverse incision of lower segment of uterus: Code(s): O82 - Encounter for delivery without indication Status: Acute Plan day: 2 Plan: routine care and discharge home (tomorrow) Comments: - will give couple doses of norco 10 to better control pain - Pelvic rest; take meds as prescribed - Incision care/no heavy lifting - ER return precautions: fever, n/v/abd pain, bleeding, HTN Time Spent With Patient Time: Total time spent is greater than 50% in coordination of care (as documented) at patient's floor/unit and/or counseling patient: Review of Systems Constitutional: Constitutional: Denies chills, Denies fever(s) and Denies headache(s) Eyes: Eyes: Denies change in vision ENT: Denies dizziness and Denies headache(s) Cardiovascular: Cardiovascular: Denies chest pain, Denies palpitations and Denies dyspnea Respiratory: Respiratory: Denies cough and Denies dyspnea Gastrointestinal: Gastrointestinal: Denies nausea and Denies vomiting Genitourinary: Comments: normal bleeding Neurologic: Denies dizziness and Denies headache(s) Endocrine: Endocrine: Denies palpitations Exam Const: General: cooperative, comfortable, no acute distress and obese Orientation/consciousness: patient oriented x3 Resp: Effort & Inspection: normal respiratory effort Auscultation: clear to auscultation bilaterally Cardio: Rate: regular rate GI: Inspection: non-distended and incision (covered with clean dressing) GI Palp: Yes abdominal tenderness (appropriate) and Yes Soft to palpation Auscultation: normal bowel sounds : Other: fundus firm Skin: General skin exam: normal color Neuro: General: patient oriented x3 Extrem: General: normal to inspection Psych: Appearance: grossly normal Affect: normal affect Attitude: cooperative
[2023-06-26] MEDS: HYDROcodone/acetaminophen (*CRX) 10-325 MG TABLET 1 TAB PO ×2 (09:21→13:40)
[2023-06-26 12:45] VITALS: BP 132/79; PULSE 105; RESP 18; TEMP 36.8; O2SAT 100
[2023-06-26 17:00] VITALS: BP 133/80; PULSE 102; RESP 18; TEMP 36.8; O2SAT 97
[2023-06-26 19:24] VITALS: BP 141/94; PULSE 94; RESP 18; TEMP 36.9; O2SAT 99
[2023-06-27 01:40] VITALS: BP 139/86; PULSE 104
[2023-06-27 05:45] VITALS: BP 137/94; PULSE 90
[2023-06-27] MEDS: IBUPROFEN 600 MG TABLET PO ×2 (05:50→12:08)
[2023-06-27] MEDS: HYDROcodone/acetaminophen (*CRX) 10-325 MG TABLET 1 TAB PO (05:50)
[2023-06-27 07:45] VITALS: BP 137/93; PULSE 93; RESP 18; TEMP 37.2; O2SAT 98
[2023-06-27] MEDS: HYDROcodone/acetaminophen (*CRX) 5-325 MG TABLET 1 TAB PO (09:54)
[2023-06-27] MEDS: POLYSACCHARIDE IRON COMPLEX 150 MG CAPSULE PO (09:55)
[2023-06-27] MEDS: DOCUSATE SODIUM 100 MG CAPSULE PO (09:55)
[2023-06-27] MEDS: MULTIVIT/MIN/PREN/FOL AC/IRON TABLET 1 TAB PO (09:55)
[2023-06-29 10:59] VITALS: BP 126/89; PULSE 78; RESP 20; TEMP 36.6; O2SAT 100
== END 2023-06-27 12:25 | disposition home or self-care (01) | DRG 787 ==
LOC: ANHLDR 08:28 → ANHOB2 06-25 09:44 → ANHLDR 06-30 09:58 → ANHOB2 06-30 09:58
PROVIDERS: Admitting Provider Obstetrics & Gynecology Gynecology; PCP Family Medicine Sports Medicine; Visit Provider Obstetrics & Gynecology
PROC: 10D00Z1 Extraction of Products of Conception, Low, Open Approach (ICD-10-PCS; CPT 59514; principal; 2023-06-24 07:30)
DX: O34.219 Maternal care for unspecified type scar from previous cesarean delivery (principal); O10.92 Unspecified pre-existing hypertension complicating childbirth; O11.4 Pre-existing hypertension with pre-eclampsia, complicating childbirth; O99.214 Obesity complicating childbirth; O69.81X0 Labor and delivery complicated by cord around neck, without compression, not applicable or unspecified; Z3A.37 37 weeks gestation of pregnancy; Z37.0 Single live birth
CPT/HCPCS: 36415; 85025; 88307; A9270; J0690; J1885; J2274; J2405; J2590; J7120